=== PATIENT | female | born 1995 | race Caucasian/White ===

== ENCOUNTER 2025-01-14 11:33 | Inpatient (IN) | payer MEDICAID, SELFPAY ==
--- NOTE | 2025-01-14 11:57 | EKG_ITS ---
[facility] Test Date: 2025-01-14 Pat Name: MARGARET WATERS Department: Room: - Gender: Female Manager Salt: : 1995 Requested By: Jonathan Rg Order Number: [id number] Reading MD: Jonathan Rg Measurements Intervals [place] Rate: 115 P: 28 HI: 154 QRS: 6 QRSD: 87 T: 31 QT: 332 QTc: 459 Interpretive Statements SINUS TACHYCARDIA ABNORMAL RHYTHM ECG Compared to ECG 11/14/2018 10:01:05 T-wave abnormality no longer present /store/S0/[id number]
--- NOTE | 2025-01-14 11:57 | XR_ITS ---
Examination: AP chest single view TECHNIQUE: AP portable semiupright chest single view Date and time: January 14, 2025 1159 hours Comparison November 14, 2018 INDICATIONS: Chest pain today. FINDINGS: 16 mm nodule which may be cavitary in the left upper lobe. Normal heart size Right lung clear The osseous structures are intact IMPRESSION: 16 mm nodule which may be cavitary in the left upper lobe, differential would include tuberculosis Recommend CT chest without contrast follow-up
--- NOTE | 2025-01-14 11:58 | PD.EDCHEST ---
ED Chest Pain RME/HPI General Chief Complaint: Chest Pain Stated Complaint: CHEST PAIN Time Seen by Provider: 01/14/25 11:53 Arrival date/time: 01/14/25 11:33 RME / HPI RME / HPI narrative: 29-year-old female patient came in for evaluation regarding chest pain. Onset of symptoms since last night as chest pain, described as sharp pain, severity moderate. Patient continued to have chest pain all night, and woke up this morning with numbness to bilateral upper extremity and lower extremity. Patient is ambulatory. Patient denies any weakness to the extremities. Denies any headache denies any cough denies any other complaints. Patient was given nitro and Nitropaste and aspirin on the way to the emergency room. Related Data Previous Rx's ?Medication ?Instructions ?Recorded acetaminophen 325 mg capsule 975 mg (3 x 325 mg) PO Q6H PRN 01/24/20 pain #30 caps Allergies Allergy/AdvReac Type Severity Reaction Status Date / Time ciprofloxacin Allergy Severe CAUSES Verified 01/23/19 20:05 SEVERE ANXIETY ATTACKS adhesive Allergy Intermediate ARM TURNED Verified 01/23/19 20:05 RED Iodinated Contrast Media AdvReac Severe BURNING,BRU Verified 01/23/19 20:05 ISING,DIZZY ,NAUSEATED Review of Systems Review of Systems Narrative Review of Systems: Review of system reviewed and within normal limits except mentioned in HPI ED Exam Narrative Physical exam: VITAL SIGNS: Reviewed. GENERAL APPEARANCE: Alert and interactive, follows commands, no acute distress, HEAD AND FACE: Non-traumatic. ENT: PERRL, pink conjunctivitis, eyelid no trauma, Mucous membrane moist. NECK: Supple, nontender, no nuchal rigidity. CHEST: No tenderness, no crepitus, no paradoxical movement, no retractions. LUNGS: Clear, well ventilated, symmetric, no rales, no wheezing, no ronchi, no stridor, good breath sounds bilaterally. HEART: Regular rate, regular rhythm, no murmur, no gallops. ABDOMEN: Soft, positive bowel sounds, nondistended, no guarding, nontender, no rebound, no masses, RECTAL: Deferred. GENITAL: Deferred. NEUROLOGICAL: Gross motor function intact sensory function intact, Appropriate for age. No arm or lower leg drifting noted. MUSCULOSKELETAL: low back nontender, full range of motion. EXTREMITIES: Nontender, full range of motion. SKIN: Color pink, dry, no rash, no lacerations, no abrasions, no contusions. LYMPHATICS: Deferred. Course Quality Measures none Orders Category Date Time Status COVID-19 Screening Questionnaire NOW Care 01/14/25 16:42 Active COVID-19 Screening Questionnaire NOW Care 01/14/25 16:54 Completed Decision to Admit X1 Care 01/14/25 16:42 Completed Decision to Admit X1 Care 01/14/25 16:54 Completed EKG (ED ONLY) *Do not use* NOW Care 01/14/25 11:[address] chest wo con Stat Exams 01/14/25 14:28 Completed EKG (ED Only) Stat Exams 01/14/25 11:57 Draft XR chest 1V Stat Exams 01/14/25 11:57 Completed CBC Stat Lab 01/14/25 12:13 Completed Cocci Serology IgM with reflex to IgG [Cocci Serology, Lab 01/14/25 16:02 Ordered Unk History] Stat Comprehensive Metabolic Panel Stat Lab 01/14/25 12:13 Completed Drug Screen,Urine Stat Lab 01/14/25 12:13 Completed Partial Thromboplastin Time Stat Lab 01/14/25 12:13 Completed Troponin I Stat Lab 01/14/25 12:13 Completed Urinalysis, C/S if Indicated Stat Lab 01/14/25 12:13 Completed Ibuprofen Tab [Motrin Tab] Med 01/14/25 14:06 Discontinued 800 mg PO X1 ONE Vital Signs Vital signs: Vital Signs Temperature 98.3 F 01/14/25 12:26 Pulse Rate 110 H 01/14/25 12:26 Respiratory Rate 19 01/14/25 12:26 Blood Pressure 139/74 H 01/14/25 12:26 Pulse Oximetry (%) 95 01/14/25 12:26 Oxygen Delivery Method Room Air 01/14/25 12:26 Chest Pain MDM Narrative MDM Narrative:: 29-year-old female patient came in for evaluation regarding chest pain. Onset of symptoms since last night as chest pain, described as sharp pain, severity moderate. Patient continued to have chest pain all night, and woke up this morning with numbness to bilateral upper extremity and lower extremity. Patient is ambulatory. Patient denies any weakness to the extremities. Denies any headache denies any cough denies any other complaints. Patient was given nitro and Nitropaste and aspirin on the way to the emergency room. 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 Patient also told me that she unintentionally lost weight more than 20 pounds in the few weeks without even trying EKG showed sinus tachycardia, ventricular to 115 beats per minute, no ST segment elevation or depression noted. Patient's workup today all came back unremarkable no leukocytosis noted however CT scan of the chest showed 17 mm thick-walled cavitary lesion left upper lobe with adjacent subtle miliary nodular infiltrate in the left upper lobe, highest on the differential list is active tuberculosis, coccidioidomycosis Patient's workup today all came back normal. We suspect possible tuberculosis patient is to be admitted for further management and isolation. Patient data External records reviewed:: None Clinical information provided by:: patient Social determinants that could affect healthcare access:: none Patient has the following chronic illnesses:: None How is presenting disease/condition affected by chronic disease/condition?: no chronic disease Evaluation data The following diagnostics were reviewed and interpreted by me:: lab results, radiology exam(s) and EKG tracing(s) Lab and/or radiology exams considered but not ordered:: None Interpretation Summary: See results MDM Medications / Prescriptions Medications or Prescriptions considered but not ordered:: None Medication administrations:: Medication Administration History Acetaminophen (Acetaminophen 325 Mg Tablet) 650 mg PO Q6H PRN PRN Reason: Fever >101.5 Stop: 02/13/25 17:17 Acetaminophen (Acetaminophen 325 Mg Tablet) 650 mg PO Q6H PRN PRN Reason: PAIN SCALE 1-3 (mild Stop: 02/13/25 17:17 Ondansetron HCl (Ondansetron Odt 4 Mg Tabrap) 4 mg PO Q6HR PRN; Protocol PRN Reason: NAUSEA OR VOMITING Stop: 02/13/25 17:59 Discontinued Medications Enoxaparin Sodium (Enoxaparin Sod Inj 40 Mg/0.4 Ml Syringe) 40 mg SC DAILY [facility] Stop: 01/28/25 17:59 Last Admin: 01/14/25 18:28 Dose: Not Given Documented By: ELIJAH Non-Admin Reason: Cancelled by Provider Ibuprofen (Ibuprofen Tab 400 Mg Tablet) 800 mg PO X1 ONE; Protocol Stop: 01/14/25 14:07 Last Admin: 01/14/25 14:14 Dose: 800 mg Documented By: SM Sodium Chloride (Sodium Chloride Rt 10% 15 Ml Nebu) 5 ml INH X1 ONE Stop: 01/14/25 17:21 Sodium Chloride (Sodium Chloride Rt 10% 15 Ml Nebu) 5 ml INH X1 ONE Stop: 01/14/25 17:21 Tylenol and Zofran Consultations Consultation(s) initiated? (list below): No Diagnosis Chest Pain Differential Diagnosis: pneumothorax and chest pain Most likely diagnosis given after review of the tests above:: Cavitary lesion rule out tuberculosis in the lung Admission Indicated Admission indicated?: not indicated Admission Request Was there a request for admission?: Yes Admission Attestation Admission request attestation: Discussed case with Hospitalist service regarding admission. Discussed patients ED course, exam findings, labs, and radiology results. The Hospitalist [agrees] to accept the patient for admission. Disposition Plan Disposition Plan: Admit Discharge Plan Plan Patient Disposition: Admit Acute Care w/in Hospital Problem List Clinical Impression: Pulmonary cavitary lesion
[2025-01-14 12:05] VITALS: PULSE 120; RESP 16; O2SAT 96
[2025-01-14 12:20] VITALS: BMI 33.4
--- NOTE | 2025-01-14 12:21 | PC.NURSE ---
PATIENT ARRIVED ED VIA EMS WITH COMPLAINT OF CHEST PAIN. PATIENT STATES SHE HAD LEFT SIDE CHEST PAIN RADIATING DOWN LEFT ARM LAST NIGHT AND WENT TO BED WITH AN ICE PACK. PATIENT STATES SHE HAD ADDITIONAL PAIN WITH DIZZINESS THIS MORNING WITH CHEST PAIN THAT WRAPPED AROUND RIB AREA. PATIENT STATES THAT SHE ATE DUE TO FEELING LIKE HER BS WAS DROPPING, NO HISTORY OF DM. UPON ARRIVAL TO ED PATIENT DENIES COMPLAINT DUE TO EMS GIVING ASA 165MG, NITRO TABLETS AND NITRO PASTE WITH POSITIVE RELIEF. PATIENT STATES SHE HAS HISTORY OF ANXIETY BUT STATES THIS DID NOT FEEL LIKE HER NORMAL ANXIETY COMPLAINTS. EKG COMPLETED AT BEDSIDE. WILL CONTINUE TO MONITOR. PROVIDER REQUESTED TO REMOVE NITRO PASTE AT THIS TIME.
[2025-01-14 12:24] LABS: Collection Type, Urine Clean Catch; RBC,Urine 0 /hpf (0-3); WBC,Urine 0 /hpf (0-5)
[2025-01-14 12:25] LABS: Basophils # (Auto) 0.1 Thou/mm3 (0.0-0.2); Basophils % (Auto) 1 % (0-2.5); Eosinophils # (Auto) 0.1 Thou/mm3 (0.0-0.5); Eosinophils % (Auto) 1 % (0-10); Hematocrit 42.4 % (36.0-46.0); Hemoglobin 14.7 g/dL (12.0-16.0); Immature Granulocytes Auto 0.05 Thou/mm3 (0.00-0.00); Lymphocytes # (Auto) 1.6 Thou/mm3 (1.0-4.8); Lymphocytes % (Auto) 17 % (10-50); Mean Corpuscular HGB Conc 34.7 g/dl (31.0-37.0); Mean Corpuscular Hemoglobin 30.9 pg (25.0-35.0); Mean Corpuscular Volume 89 fL (80-100); Monocytes # (Auto) 0.4 Thou/mm3 (0.0-0.8); Monocytes % (Auto) 5 % (0-12); Neutrophils # (Auto) 7.2 Thou/mm3 (1.8-7.7); Neutrophils % (Auto) 77 % (37-80); Nucleated Red Blood Cell # 0.00 Thou/mm3 (0.00-0.00); Nucleated Red Blood Cell % 0 /100 WBC (0); Platelet Count 363 Thou/mm3 (140-440); RDW Standard Deviation 38.1 fL (36.4-46.3); Red Blood Count 4.75 Miln/mm3 (4.00-5.20); White Blood Count 9.3 Thou/mm3 (3.6-11.0)
[2025-01-14 12:26] VITALS: BP 139/74; PULSE 110; RESP 19; TEMP 36.8; O2SAT 95
[2025-01-14 12:53] LABS: Amphetamine/Methamp Scrn,U Negative (Negative); Barbiturate Screen,Urine Negative (Negative); Benzodiazepines Screen,Urine Negative (Negative); Benzoylecgonine Screen, Ur Negative (Negative); Bilirubin,Urine Negative (Negative); Blood,Urine Negative (Negative); Clarity,Urine Clear (Clear/Hazy); Color,Urine Yellow (Lt Yel-Yel); Culture Indicated,Urine Not Indicated; Fentanyl Screen,Urine Negative (Negative); Glucose, Urine Negative (Negative); Ketones,Urine Negative (Negative); Leukocyte Esterase,Urine Negative (Negative); Nitrite,Urine Negative (Negative); Opiate Screen,Urine Negative (Negative); PH,Urine 5.5 (5.0-7.0); Protein,Urine Negative (Neg - Trace); Specific Gravity,Urine 1.028 (1.001-1.035); Squamous Epithelial Cell,Urine 11 /hpf (0-5); THC Screen,Urine Negative (Negative); Urobilinogen,Urine Negative mg/dL (0.0-1.0)
[2025-01-14 12:54] LABS: Partial Thromboplastin Time 29.6 Seconds (22.0-36.0)
[2025-01-14 13:01] LABS: Alanine Aminotransferase 19 U/L (10-49); Albumin, Serum 4.3 gm/dL (3.5-5.0); Albumin/Globulin Ratio 1.6 (1.2-2.2); Alkaline Phosphatase 72 U/L (46-116); Anion Gap 10 (7-16); Aspartate Amino Transferase 21 U/L (0-34); BUN/Creatinine Ratio 11 Ratio (12-20); Bilirubin,Total 0.7 mg/dL (0.3-1.2); Blood Urea Nitrogen 9 mg/dL (9-23); Calcium 9.4 mg/dL (8.3-10.6); Calcium (Corrected) 9.4 mg/dL (8.5-10.1); Carbon Dioxide 26.0 mMol/L (20.0-31.0); Chloride 105 mMol/L (98-107); Creatinine (Component) 0.8 mg/dL (0.6-1.3); Estimated Creatinine Clearance 127.0 mL/min (>60); Globulin 2.7 gm/dL (2.3-3.5); Glucose 113 mg/dL (74-106); Osmolality,Calculated 280 (275-295); Potassium 3.8 mMol/L (3.4-5.1); Sodium 141 mMol/L (136-145); Total Protein 7.0 gm/dL (5.7-8.2); Troponin I < 0.002 ng/mL (0.0-0.045); eGFR > 60 See Note
[2025-01-14] MEDS: IBUPROFEN TAB 400 MG TABLET 800 MG PO ×2 (14:14→23:10)
--- NOTE | 2025-01-14 14:28 | XR_ITS ---
Examination: CT chest, without intravenous contrast. Sagittal and coronal 2-D reconstructions. Exam date and time: January 14, 2025, 1450 hours INDICATIONS: Chest pain shortness of breath beginning one week ago, 16 mm nodule which may be cavitary left upper lobe on chest x-ray today CTDI:vol (mGy) 20.8 DLP: (mGycm) 757 Technique: Multiple 3.0 mm axial sections of the chest to been obtained. Bone and lung density settings are obtained. Sagittal and coronal 2-D reconstructions have been obtained. Low dose protocols were performed. One or more of the following dose reduction techniques were used; automated exposure control, adjustment of the mA and/or KV according to patient size, use of iterative reconstruction technique. Findings: Aortic aneurysmal dilatation Pulmonary artery segments are not enlarged. No paratracheal tracheobronchial or bronchopulmonary adenopathy 17 mm thick-walled cavitary lesion left upper lobe with subtle miliary nodular infiltrate in the left upper lobe No visualized liver lesion Splenomegaly 15 cm No pancreatic or adrenal mass IMPRESSION: 17 mm thick-walled cavitary lesion left upper lobe with adjacent subtle miliary nodular infiltrate in the left upper lobe, highest on the differential list is active tuberculosis, coccidioidomycosis
--- NOTE | 2025-01-14 17:23 | ESHP_ITS ---
<Statement entered by Erik Baumann MD - 01/14/25 18:16> Senior Resident Attestation: I supervised/discussed management plan with internal audit manager physician Dr. Hansen, and was involved in the care of this patient. I personally saw and examined the patient and discussed the assessment and plan with the entire medicine team, including my attending. I agree with the assessment and plan as documented. Patient is 29 years old female with no significant past medical history presented to the ED complaining of chest pain worsening over the last several days. CT scan showed 17 mm thick cavitary lesion in the left upper lobe suspicious for active tuberculosis versus coccidioidomycosis. Patient was admitted for TB rule out. Patient's care was discussed with attending physician, Dr. Madison. Erik Baumann MD PGY-3. Documentation for date of: 01/14/25 HPI History of Present Illness History of present illness: Ms. Velez is a 29 y/o woman with PMH of PCOS who presented to the ED 01/14 with progressive chest pain. CT chest showed 17 mm thick walled cavitary lesion in the left upper lobe with subtle miliary nodular infiltrate in the left upper lobe. Admit for active TB vs cocci r/o. Patient initially came in for sharp, moderately severe chest pain that started last night. She woke up this morning with numbness to the b/l upper and lower extremities, per ED note. Given nitro, Nitropaste, aspirin on the way to the ED. She began coughing while in the ED, but denies hemoptysis. She also has a a headache. Patient has noticed that she has been feeling more fatigued for the past 2-3 months. Has had diarrhea that is yellow in color and floats, started several months ago. She has had weight loss of 20 lbs over the past year. Denies overt night sweats but does note that she no longer uses as many blankets when sleeping. 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 Does not know if patients had TB. She denies recent travel outside of the [place]. Denies taking immunosuppressants, chemo, or being immunocompromised. ED course: Afebrile, initial HR 98, RR 18, BP 138/90, spO2 98% RA. CBC, CMP, UA unremarkable. Troponin negative. UDs negative. CXR c/f cavitary lesion MAISHA. EKG sinus tachycardia HR 115, QTc 459. CT chest w/o showed 17 mm thick walled cavitary lesion in the left upper lobe with subtle miliary nodular infiltrate in the left upper lobe. Given ibuprofen in the ED. PMHx: PCOS Allergies: Ciprofloxacin (hives), amox-clav (hives) Home meds: none, no supplements or minerals SgHx: Left wrist fracture repair SHx: Denies smoking/tobacco use, EtOH, or recreational drug use. Lives at home with her and 2 kids. 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 Exam Vital Signs Temp Pulse Resp BP Pulse Ox O2 Del Method 98.3 F 110 H 19 139/74 H 95 Room Air 01/14/25 12:26 01/14/25 12:26 01/14/25 12:26 01/14/25 12:26 01/14/25 12:26 01/14/25 12:26 Narrative Exam General: No acute distress, well nourished, BMI 33 Eye: PERRL, EOMI, normal conjunctiva, no scleral icterus HENT: Normocephalic, atraumatic, normal hearing, moist oral mucosa Neck: Supple, non-tender, no JVD, no lymphadenopathy Lungs: Clear to auscultation bilaterally, non-labored respirations, symmetric chest rise, no use of accessory muscles Heart: Normal S1 and S2, no S3 or S4 appreciated. Normal rate and regular rhythm, no murmurs, rubs gallops, or edema. Peripheral pulses intact bilaterally, capillary refill brisk distally, no LE edema Abdomen: Soft, non-distended, normal bowel sounds. + RUQ TTP Musculoskeletal: Normal range of motion and strength, no tenderness or swelling Skin: Skin is warm, dry, no rashes or lesions. Neurologic: Alert, awake and oriented x3. CN II-XII grossly intact. No focal neuro deficits. Psychiatric: Cooperative, appropriate mood and affect Results: Labs 01/14/25 12:13 01/14/25 12:13 Labs: Short CBC 01/14/25 Range/Units 12:13 WBC 9.3 (3.6-11.0) Thou/mm3 Hgb 14.7 (12.0-16.0) g/dL Hct 42.4 (36.0-46.0) % Plt Count 363 (140-440) Thou/mm3 BMP 01/14/25 12:13 Sodium 141 Potassium 3.8 Chloride 105 Carbon Dioxide 26.0 BUN 9 Creatinine 0.8 Glucose 113 H Calcium 9.4 Cardiac Enzymes 01/14/25 Range/Units 12:13 Troponin I < 0.002 (0.0-0.045) ng/mL Liver Function 01/14/25 Range/Units 12:13 Total Bilirubin 0.7 (0.3-1.2) mg/dL AST 21 (0-34) U/L ALT 19 (10-49) U/L Alkaline Phosphatase 72 (46-116) U/L Albumin 4.3 (3.5-5.0) gm/dL Urine 01/14/25 Range/Units 12:13 Urine Color Yellow (Lt Yel-Yel) Urine Clarity Clear (Clear/Hazy) Urine pH 5.5 (5.0-7.0) Ur Specific [place] 1.028 (1.001-1.035) Urine Protein Negative (Neg - Trace) Urine Glucose (UA) Negative (Negative) Quality Measures Quality Measures VTE prophylaxis Medications Home Medications and Allergies Allergies Allergy/AdvReac Type Severity Reaction Status Date / Time ciprofloxacin Allergy Severe CAUSES Verified 01/23/19 20:05 SEVERE ANXIETY ATTACKS adhesive Allergy Intermediate ARM TURNED Verified 01/23/19 20:05 RED Iodinated Contrast Media AdvReac Severe BURNING,BRU Verified 01/23/19 20:05 ISING,DIZZY ,NAUSEATED Visit Medications Acetaminophen (Acetaminophen 325 Mg Tablet) 650 mg PO Q6H PRN PRN Reason: Fever >101.5 Stop: 02/13/25 17:17 Acetaminophen (Acetaminophen 325 Mg Tablet) 650 mg PO Q6H PRN PRN Reason: PAIN SCALE 1-3 (mild Stop: 02/13/25 17:17 Discontinued Medications Ibuprofen (Ibuprofen Tab 400 Mg Tablet) 800 mg PO X1 ONE; Protocol Stop: 01/14/25 14:07 Last Admin: 01/14/25 14:14 Dose: 800 mg Sodium Chloride (Sodium Chloride Rt 10% 15 Ml Nebu) 5 ml INH X1 ONE Stop: 01/14/25 17:21 Sodium Chloride (Sodium Chloride Rt 10% 15 Ml Nebu) 5 ml INH X1 ONE Stop: 01/14/25 17:21 Assessment & Plan Plan # Cavity lesion on left upper lobe # TB vs cocci rule out 20 lb unintentional weight loss over 1 year, 2-3 months fatigue, sharp chest pain x1 day 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 Admit for active TB vs cocci r/o. Plan: - Airborne isolation until TB ruled out - Pending AFB sputum cultures with NAAT ?3 q8h - Pending Quantiferon - Pending cocci serology - ID consulted, appreciate recs - Tylenol for pain/fever PRN - CTM for fever, CBC #RUQ pain Several months yellow-colored diarrhea that floats LFT, total bili WNL Plan: - Pending Abdominal US #Hx PCOS BMI 33 Plan: -Pending A1C, lipid panel Dispo: pending TB r/o Diet: regular Bowel Reg: none VTE ppx: lovenox 40 mg daily GI ppx: none Code status: Full Plan discussed with Dr. Baumann and Dr. Los Hansen MD PGY1 Attending Provider Attestation/Addendum I have examined the patient, reviewed labs and imaging findings, discussed the case with the resident(s), and reviewed entered orders. I agree with the plan of care as outlined in this note, with these additional summaries/recommendations: After examination of the patient and review of the clinical data, I feel that this patient needs admission to the hospital for further treatment and evaluation. Patient is a 29-year-old female with no significant past medical history who presents to [facility] emergency department on 01/14/2025 with chief complaint of chest pain. Patient seen at bedside. She endorses chest pain prior to arrival. Troponin with in normal limits. No acute ST changes on electrocardiogram but does reveal sinus tachycardia. Patient completed chest x-ray which was suspicious for cavitary lesion in left upper lobe. CT chest obtained which revealed 17 mm thick walled cavitary lesion left upper lobe with adjacent subtle miliary nodular infiltrate. Differential is active tuberculosis versus coccidioidomycosis. Patient will be placed on isolation precautions. Order AFBs x 3 and quantiferon gold. Order cocci serology. Tylenol and ibuprofen as needed for pain management. Patient updated on the plan and in agreement. Please see residents note for additional details of management. Dr. Los MD
--- NOTE | 2025-01-14 17:48 | XR_ITS ---
Examination: Abdomen sonogram, Limited Date and time of exam: January 14, 2025 1824 hours INDICATIONS: Right-sided tenderness and pain today Technique: Real-time muana scale transabdominal sonographic images of the upper abdomen obtained. Findings: 5 mm gallbladder polyp Negative for gallstones Normal gallbladder wall. Normal common bile duct 0.3 cm Pancreatic head 3.3 cm Liver 16.2 cm no focal liver lesions Normal hepatopedal portal venous flow Patent IVC IMPRESSION: 5 mm gallbladder polyp Negative for cholelithiasis, negative for cholecystitis
[2025-01-14 17:59] LABS: Glucose Estimated Average 105 mg/dL (80-131); Hemoglobin A1C 5.3 % Hgb (4.8-6.0)
[2025-01-14 18:15] VITALS: BP 125/94; PULSE 81; RESP 18; TEMP 36.8; O2SAT 98
[2025-01-14 19:45] VITALS: BP 127/85; PULSE 89; RESP 14; TEMP 36.8; O2SAT 98
--- NOTE | 2025-01-14 20:04 | PC.NURSE ---
Report called to floor nurse, Lety KUO
[2025-01-14 20:33] VITALS: BMI 41.4
[2025-01-14 20:41] VITALS: BP 127/82; PULSE 69; RESP 14; TEMP 37.6; O2SAT 90
[2025-01-15] VITALS (8 sets, daily range): BP systolic 97–140; BP diastolic 56–95; PULSE 62–91; RESP 15–22; TEMP 36–36.5; O2SAT 96–100
[2025-01-15 06:26] LABS: Basophils # (Auto) 0.1 Thou/mm3 (0.0-0.2); Basophils % (Auto) 1 % (0-2.5); Eosinophils # (Auto) 0.2 Thou/mm3 (0.0-0.5); Eosinophils % (Auto) 2 % (0-10); Hematocrit 39.6 % (36.0-46.0); Hemoglobin 14.0 g/dL (12.0-16.0); Immature Granulocytes Auto 0.05 Thou/mm3 (0.00-0.00); Lymphocytes # (Auto) 2.2 Thou/mm3 (1.0-4.8); Lymphocytes % (Auto) 25 % (10-50); Mean Corpuscular HGB Conc 35.4 g/dl (31.0-37.0); Mean Corpuscular Hemoglobin 31.4 pg (25.0-35.0); Mean Corpuscular Volume 89 fL (80-100); Monocytes # (Auto) 0.6 Thou/mm3 (0.0-0.8); Monocytes % (Auto) 7 % (0-12); Neutrophils # (Auto) 6.0 Thou/mm3 (1.8-7.7); Neutrophils % (Auto) 66 % (37-80); Nucleated Red Blood Cell # 0.00 Thou/mm3 (0.00-0.00); Nucleated Red Blood Cell % 0 /100 WBC (0); Platelet Count 298 Thou/mm3 (140-440); RDW Standard Deviation 37.8 fL (36.4-46.3); Red Blood Count 4.46 Miln/mm3 (4.00-5.20); White Blood Count 9.1 Thou/mm3 (3.6-11.0)
[2025-01-15] MEDS: SODIUM CHLORIDE RT 10% 15 ML NEBU 5 ML INH ×2 (06:58→23:46)
[2025-01-15 06:59] LABS: Alanine Aminotransferase 14 U/L (10-49); Albumin, Serum 4.0 gm/dL (3.5-5.0); Albumin/Globulin Ratio 1.7 (1.2-2.2); Alkaline Phosphatase 67 U/L (46-116); Anion Gap 9 (7-16); Aspartate Amino Transferase 14 U/L (0-34); BUN/Creatinine Ratio 13 Ratio (12-20); Bilirubin,Total 0.6 mg/dL (0.3-1.2); Blood Urea Nitrogen 9 mg/dL (9-23); Calcium 9.4 mg/dL (8.3-10.6); Calcium (Corrected) 9.4 mg/dL (8.5-10.1); Carbon Dioxide 25.4 mMol/L (20.0-31.0); Cardiac Risk Estimate 6.0 RATIO (3.7-5.6); Chloride 105 mMol/L (98-107); Cholesterol 185 mg/dL (132-200); Creatinine (Component) 0.7 mg/dL (0.6-1.3); Estimated Creatinine Clearance 162.9 mL/min (>60); Globulin 2.4 gm/dL (2.3-3.5); Glucose 103 mg/dL (74-106); HDL Cholesterol 31 mg/dL (40-60); LDL Cholesterol,Calculated 130 mg/dL (0-130); Magnesium 1.6 mg/dL (1.6-2.6); Osmolality,Calculated 276 (275-295); Phosphorous 3.7 mg/dL (2.4-5.1); Potassium 4.4 mMol/L (3.4-5.1); Sodium 139 mMol/L (136-145); Total Protein 6.4 gm/dL (5.7-8.2); Triglycerides 118 mg/dL (30-150); eGFR > 60 See Note
--- NOTE | 2025-01-15 09:54 | ESPR_ITS ---
<Statement entered by Boaz Patterson MD - 01/15/25 21:11> Patient was examined and case was reviewed with team including attending physician. Note reviewed, I agree with most of its contents and agree with the patient's care as documented by Dr. Hansen Patient seen today at the bedside found awake, alert, orientedx3. No overnight events reported. Vital signs stable at this time. Will continue with isolation and will await AFB results to rule out TB. Cocci serology pending at this time. Case discussed with my attending Dr. Carolyn Patterson MD PGY-2 Documentation for date of: 01/15/25 Subjective Subjective Interval history: NAEO. Patient reports no new symptoms. Denies chest pain, headache, abdominal pain, N/V/diarrhea. Exam Vital Signs Temp Pulse Resp BP Pulse Ox O2 Del Method 96.8 F 91 20 140/95 H 99 Room Air 01/15/25 07:35 01/15/25 07:35 01/15/25 07:35 01/15/25 07:35 01/15/25 07:35 01/15/25 07:35 Narrative Exam General: No acute distress, well nourished, Eye: PERRL, EOMI, normal conjunctiva, no scleral icterus HENT: Normocephalic, atraumatic, normal hearing, moist oral mucosa Neck: Supple, non-tender, no JVD, no lymphadenopathy Lungs: Clear to auscultation bilaterally, non-labored respirations, symmetric chest rise, no use of accessory muscles Heart: Normal S1 and S2, no S3 or S4 appreciated. Normal rate and regular rhythm, no murmurs, rubs gallops, or edema. Peripheral pulses intact bilaterally, capillary refill brisk distally, no LE edema Abdomen: Soft, non-distended, normal bowel sounds. No TTP Musculoskeletal: Normal range of motion and strength, no tenderness or swelling Skin: Skin is warm, dry, no rashes or lesions. Neurologic: Alert, awake and oriented x3. CN II-XII grossly intact. No focal neuro deficits. Psychiatric: Cooperative, appropriate mood and affect Objective Labs 01/16/25 06:06 01/16/25 06:06 Labs: Laboratory Results - last 24 hr 01/14/25 01/14/25 01/15/25 12:13 12:15 05:22 WBC 9.3 9.1 RBC 4.75 4.46 Hgb 14.7 14.0 Hct 42.4 39.6 MCV 89 89 MCH 30.9 31.4 MCHC 34.7 35.4 RDW Std Deviation 38.1 37.8 Plt Count 363 298 D Neut % (Auto) 77 66 Lymph % (Auto) 17 25 [place] % (Auto) 5 7 Eos % (Auto) 1 2 Baso % (Auto) 1 1 Neut # (Auto) 7.2 6.0 Lymph # (Auto) 1.6 2.2 [place] # (Auto) 0.4 0.6 Eos # (Auto) 0.1 0.2 Baso # (Auto) 0.1 0.1 Immature Gran # (Auto) 0.05 H 0.05 H Absolute Nucleated RBC 0.00 0.00 Immature Gran % 1 H 1 H Nucleated RBC % 0 0 APTT 29.6 Sodium 141 139 Potassium 3.8 4.4 D Chloride 105 105 Carbon Dioxide 26.0 25.4 Anion Gap 10 9 BUN 9 9 Creatinine 0.8 0.7 Estim Creat Clear Calc 127.0 162.9 eGFR > 60 > 60 BUN/Creatinine Ratio 11 L 13 Glucose [address] Glu mg/dL 105 Hemoglobin A1c 5.3 Calculated Osmolality 280 276 Calcium 9.4 9.4 Corrected Calcium 9.4 9.4 Phosphorus 3.7 Magnesium 1.6 Total Bilirubin 0.7 0.6 AST 21 14 ALT 19 14 Alkaline Phosphatase 72 67 Troponin I < 0.002 Total Protein 7.0 6.4 Albumin 4.3 4.0 Globulin 2.7 2.4 Albumin/Globulin Ratio 1.6 1.7 Triglycerides 118 Cholesterol 185 LDL Cholesterol, Calc 130 HDL Cholesterol 31 L Cholesterol/HDL Ratio 6.0 H Ur Collection Type Clean Catch Urine Color Yellow Urine Clarity Clear Urine pH 5.5 Ur Specific [place] 1.028 Urine Protein Negative Urine Glucose (UA) Negative Urine Ketones Negative Urine Blood Negative Urine Nitrite Negative Urine Bilirubin Negative Urine Urobilinogen (Auto) Negative Ur Leukocyte Esterase Negative Urine RBC 0 Urine WBC 0 Ur Squamous Epith Cells 11 H Urine Bacteria None Ur Culture Indicated? Not Indicated Urine Opiates Screen Negative Urine Fentanyl Screen Negative Ur Barbiturates Screen Negative U Amphetamin/Meth Scrn Negative U Benzodiazepines Scrn Negative U Cocaine Metab Screen Negative U Marijuana (THC) Screen Negative Quality Measures Quality Measures none Assessment & Plan Assessment Current Active Medications: Generic Name Dose Route Start Last Admin Trade Name [place] PRN Reason Stop Dose Admin Acetaminophen 650 mg 01/14/25 17:18 Acetaminophen 325 Mg Tablet PO 02/13/25 17:17 Q6H PRN Fever >101.5 Acetaminophen 650 mg 01/14/25 17:18 Acetaminophen 325 Mg Tablet PO 02/13/25 17:17 Q6H PRN PAIN SCALE 1-3 (mild Ondansetron HCl 4 mg 01/14/25 18:00 Ondansetron Odt 4 Mg Tabrap PO 02/13/25 17:59 Q6HR PRN NAUSEA OR VOMITING Protocol Plan Ms. Velez is a 29 y/o female with PMH of PCOS, not on any home meds, who presented to the ED with chest pain. CT chest showed MAISHA cavitary lesion. Admitted for cocci vs TB r/o. 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 Admit for active TB vs cocci r/o. Plan: - Airborne isolation until TB ruled out - Pending AFB sputum cultures with NAAT ?3 q8h - Pending Quantiferon - Pending cocci serology - ID consulted, appreciate recs - Tylenol for pain/fever PRN - CTM for fever, CBC #RUQ pain - resolved Several months yellow-colored diarrhea that floats No diarrhea episodes in the hospital LFT, total bili WNL Abdominal US showed 5 mm gallbladder polyp, no cholelithiasis, no cholecystitis Plan: - CTM #Hx PCOS BMI 33 A1C 5.3, HDL 31 (low) otherwise lipids WNL Plan: - CTM Dispo: pending TB vs cocci r/o Diet: regular Bowel Reg: none VTE ppx: lovenox 40 mg daily GI ppx: none Code status: Full Plan discussed with Dr. Suarez and Dr. Carolyn Hansen MD PGY1 Attending Provider Attestation/Addendum I, Itzel Leon DO, attest that I was physically present for the bailey portions of the service and evaluated the patient with the resident and I reviewed and discussed the case with the resident and agree with the resident's findings and plans of care as documented above Patient seen and eval this a.m. is at bedside. Patient states that she had initially called EMS due to feeling of hypoglycemia and was not able to get her medication in time. At the time, she had felt diaphoretic, tremulous, chest discomfort, near syncopal. She states her symptoms were typical of a hypoglycemic event. However, upon arrival of EMS, an EKG had been done and there was concern that patient had an arrhythmia. She was also given nitroglycerin. However, repeat EKG was negative. In the ED, patient was found to have a cavitary lesion on chest x-ray and on CT. However, patient currently feels well and has no active complaints. She does endorse that she has a history of costochondritis which may have contributed to her chest pain. Chest pain is reproducible on palpation of her left chest. Patient states that she has never had history of TB. She does work at a custodial and her previous boss had latent TB. However, she denies any weight loss, mopped assist, night sweats or loss of appetite. She denies any history of incarceration or active TB exposure. She denies any recent travel. Patient lives at home with her 2 children and . They state that they had lived in stress more growing up and was always exposed to the dust. However, she has never been diagnosed with valley fever in the past. She states that last , she had a very bad bout of pneumonia, but all her workup was negative outpatient. Patient states that she has no cough or productive sputum despite sputum induction with [employer]. Will await QuantiFERON at this time. Physical exam was otherwise benign.
[2025-01-15 14:47] LABS: Cocci Serology, IgM Negative (Negative)
[2025-01-15] MEDS: SODIUM CHLORIDE RT 10% 15 ML NEBU INH (15:10)
[2025-01-16] VITALS: BP 133/94; PULSE 91; RESP 18; TEMP 36.2; O2SAT 99
[2025-01-16 04:00] VITALS: BP 113/67; PULSE 69; RESP 17; TEMP 36.6; O2SAT 96
[2025-01-16 06:36] LABS: Quantiferon-TB* See Sep Rpt
[2025-01-16 06:48] LABS: Basophils # (Auto) 0.1 Thou/mm3 (0.0-0.2); Basophils % (Auto) 1 % (0-2.5); Eosinophils # (Auto) 0.1 Thou/mm3 (0.0-0.5); Eosinophils % (Auto) 2 % (0-10); Hematocrit 39.3 % (36.0-46.0); Hemoglobin 13.8 g/dL (12.0-16.0); Immature Granulocytes Auto 0.05 Thou/mm3 (0.00-0.00); Lymphocytes # (Auto) 1.9 Thou/mm3 (1.0-4.8); Lymphocytes % (Auto) 23 % (10-50); Mean Corpuscular HGB Conc 35.1 g/dl (31.0-37.0); Mean Corpuscular Hemoglobin 30.9 pg (25.0-35.0); Mean Corpuscular Volume 88 fL (80-100); Monocytes # (Auto) 0.5 Thou/mm3 (0.0-0.8); Monocytes % (Auto) 6 % (0-12); Neutrophils # (Auto) 5.5 Thou/mm3 (1.8-7.7); Neutrophils % (Auto) 67 % (37-80); Nucleated Red Blood Cell # 0.00 Thou/mm3 (0.00-0.00); Nucleated Red Blood Cell % 0 /100 WBC (0); Platelet Count 274 Thou/mm3 (140-440); RDW Standard Deviation 37.9 fL (36.4-46.3); Red Blood Count 4.46 Miln/mm3 (4.00-5.20); White Blood Count 8.2 Thou/mm3 (3.6-11.0)
[2025-01-16 06:58] LABS: Alanine Aminotransferase 14 U/L (10-49); Albumin, Serum 3.9 gm/dL (3.5-5.0); Albumin/Globulin Ratio 1.5 (1.2-2.2); Alkaline Phosphatase 65 U/L (46-116); Anion Gap 10 (7-16); Aspartate Amino Transferase 15 U/L (0-34); BUN/Creatinine Ratio 11 Ratio (12-20); Bilirubin,Total 0.4 mg/dL (0.3-1.2); Blood Urea Nitrogen 8 mg/dL (9-23); Calcium 9.3 mg/dL (8.3-10.6); Calcium (Corrected) 9.4 mg/dL (8.5-10.1); Carbon Dioxide 24.7 mMol/L (20.0-31.0); Chloride 106 mMol/L (98-107); Creatinine (Component) 0.7 mg/dL (0.6-1.3); Estimated Creatinine Clearance 162.9 mL/min (>60); Globulin 2.6 gm/dL (2.3-3.5); Glucose 106 mg/dL (74-106); Magnesium 1.4 mg/dL (1.6-2.6); Osmolality,Calculated 279 (275-295); Phosphorous 4.2 mg/dL (2.4-5.1); Potassium 4.1 mMol/L (3.4-5.1); Sodium 141 mMol/L (136-145); Total Protein 6.5 gm/dL (5.7-8.2); eGFR > 60 See Note
[2025-01-16 07:45] VITALS: BP 123/81; PULSE 70; RESP 18; TEMP 36.1; O2SAT 97
--- NOTE | 2025-01-16 08:39 | ESPR_ITS ---
<Statement entered by Boaz Patterson MD - 01/16/25 20:49> Patient was examined and case was reviewed with team including attending physician. Note reviewed, I agree with most of its contents and agree with the patient's care as documented by Dr. Hansen Patient seen today at the bedside found awake, alert, orientedx3. No overnight events reported. Vital signs stable at this time. Currently pending AFBs had to be reordered as patient unable to produce sputum. Cocci serology negative at this time. Boaz Patterson MD PGY-2 Documentation for date of: 01/16/25 Subjective Subjective Interval history: NAEO. Reordered AFB with NAAT because patient could not produce sputum. VSS. Exam Vital Signs Temp Pulse Resp BP Pulse Ox O2 Del Method 97.0 F 70 18 123/81 97 Room Air 01/16/25 07:45 01/16/25 07:45 01/16/25 07:45 01/16/25 07:45 01/16/25 07:45 01/16/25 07:45 Narrative Exam General: No acute distress, well nourished, Eye: PERRL, EOMI, normal conjunctiva, no scleral icterus HENT: Normocephalic, atraumatic, normal hearing, moist oral mucosa Neck: Supple, non-tender, no JVD, no lymphadenopathy Lungs: Clear to auscultation bilaterally, non-labored respirations, symmetric chest rise, no use of accessory muscles Heart: Normal S1 and S2, no S3 or S4 appreciated. Normal rate and regular rhythm, no murmurs, rubs gallops, or edema. Peripheral pulses intact bilaterally, capillary refill brisk distally, no LE edema Abdomen: Soft, non-distended, normal bowel sounds. No TTP Musculoskeletal: Normal range of motion and strength, no tenderness or swelling Skin: Skin is warm, dry, no rashes or lesions. Neurologic: Alert, awake and oriented x3. CN II-XII grossly intact. No focal neuro deficits. Psychiatric: Cooperative, appropriate mood and affect Objective Labs 01/17/25 05:31 01/17/25 05:31 Labs: Laboratory Results - last 24 hr 01/15/25 01/16/25 09:12 06:06 WBC 8.2 RBC 4.46 Hgb 13.8 Hct 39.3 MCV 88 MCH 30.9 MCHC 35.1 RDW Std Deviation 37.9 Plt Count 274 Neut % (Auto) 67 Lymph % (Auto) 23 [place] % (Auto) 6 Eos % (Auto) 2 Baso % (Auto) 1 Neut # (Auto) 5.5 Lymph # (Auto) 1.9 [place] # (Auto) 0.5 Eos # (Auto) 0.1 Baso # (Auto) 0.1 Immature Gran # (Auto) 0.05 H Absolute Nucleated RBC 0.00 Immature Gran % 1 H Nucleated RBC % 0 Sodium 141 Potassium 4.1 Chloride 106 Carbon Dioxide 24.7 Anion Gap 10 BUN 8 L Creatinine 0.7 Estim Creat Clear Calc 162.9 eGFR > 60 BUN/Creatinine Ratio 11 L Glucose 106 Calculated Osmolality 279 Calcium 9.3 Corrected Calcium 9.4 Phosphorus 4.2 Magnesium 1.4 L Total Bilirubin 0.4 AST 15 ALT 14 Alkaline Phosphatase 65 Total Protein 6.5 Albumin 3.9 Globulin 2.6 Albumin/Globulin Ratio 1.5 Coccidioides IgM Ab Negative Quality Measures Quality Measures none Assessment & Plan Assessment Current Active Medications: Generic Name Dose Route Start Last Admin Trade Name Freq PRN Reason Stop Dose Admin Acetaminophen 650 mg 01/14/25 17:18 Acetaminophen 325 Mg Tablet PO 02/13/25 17:17 Q6H PRN Fever >101.5 Acetaminophen 650 mg 01/14/25 17:18 Acetaminophen 325 Mg Tablet PO 02/13/25 17:17 Q6H PRN PAIN SCALE 1-3 (mild Ondansetron HCl 4 mg 01/14/25 18:00 Ondansetron Odt 4 Mg Tabrap PO 02/13/25 17:59 Q6HR PRN NAUSEA OR VOMITING Protocol Sodium Chloride 15 ml 01/15/25 14:56 01/15/25 15:10 Sodium Chloride Rt 10% 15 Ml Nebu INH 02/14/25 14:55 15 ml PRN PRN Administration SOLN Plan Ms. Velez is a 29 y/o female with PMH of PCOS, not on any home meds, who presented to the ED with chest pain. CT chest showed MAISHA cavitary lesion. Admitted for cocci vs TB r/o. 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 Admit for active TB vs cocci r/o. Plan: - Airborne isolation until TB ruled out - Pending AFB sputum cultures with NAAT ?3 q8h - Pending Quantiferon, PPD skin test - Pending cocci serology - ID consulted, appreciate recs - Tylenol for pain/fever PRN - CTM for fever, CBC #RUQ pain - resolved Several months yellow-colored diarrhea that floats No diarrhea episodes in the hospital LFT, total bili WNL Abdominal US showed 5 mm gallbladder polyp, no cholelithiasis, no cholecystitis Plan: - CTM #Hx PCOS BMI 33 A1C 5.3, HDL 31 (low) otherwise lipids WNL Plan: - CTM Dispo: pending TB vs cocci r/o Diet: regular Bowel Reg: none VTE ppx: lovenox 40 mg daily GI ppx: none Code status: Full Plan discussed with Dr. Suarez and Dr. Carolyn Hansen MD PGY1 Attending Provider Attestation/Addendum I, Itzel Leon DO, attest that I was physically present for the bailey portions of the service and evaluated the patient with the resident and I reviewed and discussed the case with the resident and agree with the resident's findings and plans of care as documented above Patient seen and eval this a.m. She is unable to expectorate any sputum and thus AFBs were not done. QuantiFERON is pending. Cocci IgM is negative otherwise. Pending rest of results. PPD was also done. Patient otherwise feeling well and on room air. She is asymptomatic at this time. No acute events overnight otherwise.
[2025-01-16] MEDS: MAGNESIUM OXIDE 400 MG TABLET PO (09:31)
[2025-01-16] MEDS: TUBERCULIN PPD INJ 5 UNIT/0.1 ML DOSE ID (11:17)
--- NOTE | 2025-01-16 11:36 | PC.RT ---
PER DR LOPEZ, CANCEL AFB SAMPLES. PT IS UNABLE TO PRODUCE SPUTUM EVEN WITH INDUCTION
--- NOTE | 2025-01-16 11:43 | PC.SS ---
Patient Inna Velez is a 29 Year old female admitted fir TB VS COCCI R/O. SS contacted patient via phone due to precaution measures. Patients Nik Tafoya answered and reports patient lives at home with her children and himself, he reports he is patient's surrogate decision maker [phone]. Patient's reports patient is able to complete all ADL's independently and able to ambulate without assistance. Choice of pharmacy is [facility]. PCP is Livan Patterson. Discharge plan was discussed and patient will return home when medically cleared. Next of kin, Nik Tafoya Discharge plan: Home
[2025-01-16 12:00] VITALS: BP 123/84; PULSE 84; RESP 19; TEMP 36.1; O2SAT 98
[2025-01-16 14:45] LABS: Cocci Serology, IgG Negative (Negative)
[2025-01-16 15:06] LABS: Cocci Serology, IgM Negative (Negative)
[2025-01-16 16:00] VITALS: BP 126/82; PULSE 78; RESP 19; TEMP 36.3; O2SAT 97
--- NOTE | 2025-01-16 16:03 | PC.SS ---
SS follow up note; Patient is pending TB R/O. Patient will discharge home when medically cleared.
[2025-01-16 20:00] VITALS: BP 100/68; PULSE 72; RESP 18; TEMP 36.1; O2SAT 98
[2025-01-16] MEDS: IBUPROFEN TAB 400 MG TABLET PO (23:45)
[2025-01-17] VITALS (8 sets, daily range): BP systolic 95–145; BP diastolic 64–97; PULSE 75–100; RESP 16–19; TEMP 36.2–36.7; O2SAT 97–100
[2025-01-17 06:33] LABS: Basophils # (Auto) 0.1 Thou/mm3 (0.0-0.2); Basophils % (Auto) 1 % (0-2.5); Eosinophils # (Auto) 0.1 Thou/mm3 (0.0-0.5); Eosinophils % (Auto) 2 % (0-10); Hematocrit 40.2 % (36.0-46.0); Hemoglobin 14.0 g/dL (12.0-16.0); Immature Granulocytes Auto 0.05 Thou/mm3 (0.00-0.00); Lymphocytes # (Auto) 2.1 Thou/mm3 (1.0-4.8); Lymphocytes % (Auto) 24 % (10-50); Mean Corpuscular HGB Conc 34.8 g/dl (31.0-37.0); Mean Corpuscular Hemoglobin 31.1 pg (25.0-35.0); Mean Corpuscular Volume 89 fL (80-100); Monocytes # (Auto) 0.5 Thou/mm3 (0.0-0.8); Monocytes % (Auto) 6 % (0-12); Neutrophils # (Auto) 5.7 Thou/mm3 (1.8-7.7); Neutrophils % (Auto) 67 % (37-80); Nucleated Red Blood Cell # 0.00 Thou/mm3 (0.00-0.00); Nucleated Red Blood Cell % 0 /100 WBC (0); Platelet Count 294 Thou/mm3 (140-440); RDW Standard Deviation 37.7 fL (36.4-46.3); Red Blood Count 4.50 Miln/mm3 (4.00-5.20); White Blood Count 8.6 Thou/mm3 (3.6-11.0)
[2025-01-17 06:49] LABS: Alanine Aminotransferase 14 U/L (10-49); Albumin, Serum 3.9 gm/dL (3.5-5.0); Albumin/Globulin Ratio 1.5 (1.2-2.2); Alkaline Phosphatase 65 U/L (46-116); Anion Gap 10 (7-16); Aspartate Amino Transferase 15 U/L (0-34); BUN/Creatinine Ratio 10 Ratio (12-20); Bilirubin,Total 0.7 mg/dL (0.3-1.2); Blood Urea Nitrogen 8 mg/dL (9-23); Calcium 9.4 mg/dL (8.3-10.6); Calcium (Corrected) 9.5 mg/dL (8.5-10.1); Carbon Dioxide 25.5 mMol/L (20.0-31.0); Chloride 104 mMol/L (98-107); Creatinine (Component) 0.8 mg/dL (0.6-1.3); Estimated Creatinine Clearance 142.5 mL/min (>60); Globulin 2.6 gm/dL (2.3-3.5); Glucose 96 mg/dL (74-106); Magnesium 1.9 mg/dL (1.6-2.6); Osmolality,Calculated 275 (275-295); Phosphorous 4.2 mg/dL (2.4-5.1); Potassium 3.9 mMol/L (3.4-5.1); Sodium 139 mMol/L (136-145); Total Protein 6.5 gm/dL (5.7-8.2); eGFR > 60 See Note
[2025-01-17 07:13] LABS: Hepatitis C Antibody Non Reactive (Non React)
--- NOTE | 2025-01-17 07:49 | ESPR_ITS ---
<Statement entered by Boaz Patterson MD - 01/17/25 14:57> Patient was examined and case was reviewed with team including attending physician. Note reviewed, I agree with most of its contents and agree with the patient's care as documented by Dr. Hansen Patient seen today at the bedside found awake, alert, orientedx3. No overnight events reported. Vitals and labs reviewed. Patient is still pending AFB sample to rule out TB. We spoke with infection control and recommended possibly ripe therapy for 3 weeks or intubation with bronchoalveolar lavage. When explaining options to the patient patient became frustrated and wished for us to leave the room. Patient's decision was respected. Patient then later was able to produce samples for AFB's. Case discussed with my attending Dr. Carolyn Patterson MD PGY-2 Disclaimer: Despite multiple revisions, due to the dictation software being used, the document bellow may not be free of grammatical errors including phonetic/typographic errors. However, this does not deter from our commitment to providing health care in the patient's best interest in mind. Documentation for date of: 01/17/25 Subjective Subjective Interval history: Had a headache and panic attack overnight, received ibuprofen. Cocci IgM and IgG negative, Hep C Ab negative Pending HIV, TB Quantiferon. Patient has not been able to produce enough sputum for AFB x3 Patient evaluated at bedside, denies headache, abdominal pain. Denies new symptoms. Spoke with infection control about options if patient is unable to produce sputum for AFB. Options include BAL or RIPE inpatient for 3 weeks. Discussed options with patient, pending patient's response. Patient does not want to be put under anesthesia or stay in the hospital for 3 weeks. Re-ordered AFB with sputum induction today for one more try. RT reported that she was able to get sputum x1 today, pending 2 more for AFB. Exam Vital Signs Temp Pulse Resp BP Pulse Ox O2 Del Method 97.7 F 75 18 125/80 100 Room Air 01/17/25 04:00 01/17/25 04:00 01/17/25 04:00 01/17/25 04:00 01/17/25 04:00 01/17/25 04:00 Narrative Exam General: No acute distress, well nourished Eye: PERRL, EOMI, normal conjunctiva, no scleral icterus HENT: Normocephalic, atraumatic, normal hearing, moist oral mucosa Neck: Supple, non-tender, no JVD, no lymphadenopathy Lungs: Clear to auscultation bilaterally, non-labored respirations, symmetric chest rise, no use of accessory muscles Heart: Normal S1 and S2, no S3 or S4 appreciated. Normal rate and regular rhythm, no murmurs, rubs gallops, or edema. Peripheral pulses intact bilaterally, capillary refill brisk distally, no LE edema Abdomen: Soft, non-distended, normal bowel sounds. No TTP Musculoskeletal: Normal range of motion and strength, no tenderness or swelling Skin: Skin is warm, dry, no rashes or lesions. Neurologic: Alert, awake and oriented x3. CN II-XII grossly intact. No focal neuro deficits. Psychiatric: Labile affect, anxious Objective Labs 01/17/25 05:31 01/17/25 05:31 Labs: Laboratory Results - last 24 hr 01/15/25 01/16/25 01/17/25 09:12 06:06 05:31 WBC 8.6 RBC 4.50 Hgb 14.0 Hct 40.2 MCV 89 MCH 31.1 MCHC 34.8 RDW Std Deviation 37.7 Plt Count 294 Neut % (Auto) 67 Lymph % (Auto) 24 [place] % (Auto) 6 Eos % (Auto) 2 Baso % (Auto) 1 Neut # (Auto) 5.7 Lymph # (Auto) 2.1 [place] # (Auto) 0.5 Eos # (Auto) 0.1 Baso # (Auto) 0.1 Immature Gran # (Auto) 0.05 H Absolute Nucleated RBC 0.00 Immature Gran % 1 H Nucleated RBC % 0 Sodium 139 Potassium 3.9 Chloride 104 Carbon Dioxide 25.5 Anion Gap 10 BUN 8 L Creatinine 0.8 Estim Creat Clear Calc 142.5 eGFR > 60 BUN/Creatinine Ratio 10 L Glucose 96 Calculated Osmolality 275 Calcium 9.4 Corrected Calcium 9.5 Phosphorus 4.2 Magnesium 1.9 Total Bilirubin 0.7 AST 15 ALT 14 Alkaline Phosphatase 65 Total Protein 6.5 Albumin 3.9 Globulin 2.6 Albumin/Globulin Ratio 1.5 Coccidioides IgG Ab Negative Coccidioides IgM Ab Negative Hepatitis C Antibody Non Reactive Quality Measures Quality Measures none Assessment & Plan Assessment Current Active Medications: Generic Name Dose Route Start Last Admin Trade Name Freq PRN Reason Stop Dose Admin Acetaminophen 650 mg 01/14/25 17:18 Acetaminophen 325 Mg Tablet PO 02/13/25 17:17 Q6H PRN Fever >101.5 Acetaminophen 650 mg 01/14/25 17:18 Acetaminophen 325 Mg Tablet PO 02/13/25 17:17 Q6H PRN PAIN SCALE 1-3 (mild Fluconazole 400 mg 01/17/25 09:00 Fluconazole 100 Mg Tablet PO 01/24/25 08:59 QDAY FRANCHESCA Ondansetron HCl 4 mg 01/14/25 18:00 Ondansetron Odt 4 Mg Tabrap PO 02/13/25 17:59 Q6HR PRN NAUSEA OR VOMITING Protocol Sodium Chloride 15 ml 01/15/25 14:56 01/15/25 15:10 Sodium Chloride Rt 10% 15 Ml Nebu INH 02/14/25 14:55 15 ml PRN PRN Administration SOLN Plan Ms. Velez is a 29 y/o female with PMH of PCOS, not on any home meds, who presented to the ED with chest pain. CT chest showed MAISHA cavitary lesion. Admitted for cocci vs TB r/o. 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 Admit for active TB vs cocci r/o. Cocci IgM and IgG negative, Hep C Ab negative Patient has not been able to produce enough sputum for AFB x3 Spoke with infection control (ext. [phone]) about options if patient is unable to produce sputum for AFB. Options include BAL or RIPE inpatient for 3 weeks. Discussed options with patient, pending patient's response. Plan: - Airborne isolation until TB ruled out - Pending AFB sputum cultures with NAAT ?3 q8h - Pending Quantiferon, PPD skin test - Pending HIV Ab - ID consulted, appreciate recs - Tylenol for pain/fever PRN - CTM for fever, CBC #RUQ pain - resolved Several months yellow-colored diarrhea that floats No diarrhea episodes in the hospital LFT, total bili WNL Abdominal US showed 5 mm gallbladder polyp, no cholelithiasis, no cholecystitis Plan: - CTM #Hx PCOS BMI 33 A1C 5.3, HDL 31 (low) otherwise lipids WNL Plan: - CTM Dispo: pending TB vs cocci r/o Diet: regular Bowel Reg: none VTE ppx: lovenox 40 mg daily GI ppx: none Code status: Full Plan discussed with Dr. Suarez and Dr. Carolyn Hansen MD PGY1 Attending Provider Attestation/Addendum I, Itzel Leon DO, attest that I was physically present for the bailey portions of the service and evaluated the patient with the resident and I reviewed and discussed the case with the resident and agree with the resident's findings and plans of care as documented above Patient seen and evaluated this AM. Patient is very emotional due to concern for extended admission due to TB rule out. Patient remains asymptomatic. Will induce sputum to obtain AFBs. Patient states she does not wish to be intubated to undergo BAL.
[2025-01-17 08:39] LABS: HIV (1&2) Antibody Rapid Non-Reactive
--- NOTE | 2025-01-17 09:06 | PC.IP ---
Addendum entered by Dorothea Angelo 01/17/25 15:56: Dr. Hansen was made aware at 0910. Original Note: I spoke with Dr. Hansen at 0835 and was made aware that the patient was not able to produce enough sputum for sputum cultures. I then consulted Laurie Pena the TB Nurse from [facility] who suggested a bronchoalveolar lavage for diagnostic testing or starting the patient on the RIPE regimen for a minimum of 3 weeks before even considering discharge.
[2025-01-17] MEDS: SODIUM CHLORIDE RT 10% 15 ML NEBU 5 ML INH (10:20)
[2025-01-17 11:23] LABS: Cult AFB Sendout- Sputum* See Sep Rpt
[2025-01-17] MEDS: SODIUM CHLORIDE RT 10% 15 ML NEBU INH (18:45)
[2025-01-17 20:11] LABS: Cult AFB Sendout- Sputum* See Sep Rpt
[2025-01-18] VITALS (8 sets, daily range): BP systolic 113–142; BP diastolic 65–93; PULSE 82–104; RESP 18–20; TEMP 36.1–36.6; O2SAT 96–98
[2025-01-18 06:31] LABS: Basophils # (Auto) 0.1 Thou/mm3 (0.0-0.2); Basophils % (Auto) 1 % (0-2.5); Eosinophils # (Auto) 0.1 Thou/mm3 (0.0-0.5); Eosinophils % (Auto) 1 % (0-10); Hematocrit 39.8 % (36.0-46.0); Hemoglobin 14.2 g/dL (12.0-16.0); Immature Granulocytes Auto 0.06 Thou/mm3 (0.00-0.00); Lymphocytes # (Auto) 1.9 Thou/mm3 (1.0-4.8); Lymphocytes % (Auto) 21 % (10-50); Mean Corpuscular HGB Conc 35.7 g/dl (31.0-37.0); Mean Corpuscular Hemoglobin 31.4 pg (25.0-35.0); Mean Corpuscular Volume 88 fL (80-100); Monocytes # (Auto) 0.6 Thou/mm3 (0.0-0.8); Monocytes % (Auto) 6 % (0-12); Neutrophils # (Auto) 6.3 Thou/mm3 (1.8-7.7); Neutrophils % (Auto) 70 % (37-80); Nucleated Red Blood Cell # 0.00 Thou/mm3 (0.00-0.00); Nucleated Red Blood Cell % 0 /100 WBC (0); Platelet Count 312 Thou/mm3 (140-440); RDW Standard Deviation 37.6 fL (36.4-46.3); Red Blood Count 4.52 Miln/mm3 (4.00-5.20); White Blood Count 9.1 Thou/mm3 (3.6-11.0)
[2025-01-18 07:10] LABS: Alanine Aminotransferase 18 U/L (10-49); Albumin, Serum 4.5 gm/dL (3.5-5.0); Albumin/Globulin Ratio 1.7 (1.2-2.2); Alkaline Phosphatase 66 U/L (46-116); Anion Gap 9 (7-16); Aspartate Amino Transferase 16 U/L (0-34); BUN/Creatinine Ratio 11 Ratio (12-20); Bilirubin,Total 0.7 mg/dL (0.3-1.2); Blood Urea Nitrogen 8 mg/dL (9-23); Calcium 10.0 mg/dL (8.3-10.6); Calcium (Corrected) 10.0 mg/dL (8.5-10.1); Carbon Dioxide 25.6 mMol/L (20.0-31.0); Chloride 105 mMol/L (98-107); Creatinine (Component) 0.7 mg/dL (0.6-1.3); Estimated Creatinine Clearance 162.9 mL/min (>60); Globulin 2.6 gm/dL (2.3-3.5); Glucose 91 mg/dL (74-106); Magnesium 2.0 mg/dL (1.6-2.6); Osmolality,Calculated 277 (275-295); Phosphorous 4.1 mg/dL (2.4-5.1); Potassium 3.9 mMol/L (3.4-5.1); Sodium 140 mMol/L (136-145); Total Protein 7.1 gm/dL (5.7-8.2); eGFR > 60 See Note
--- NOTE | 2025-01-18 10:31 | ESPR_ITS ---
<Statement entered by Boaz Patterson MD - 01/18/25 17:39> Patient was examined and case was reviewed with team including attending physician. Note reviewed, I agree with most of its contents and agree with the patient's care as documented by Dr. Hansen Patient seen today at the bedside found awake, alert, orientedx3. No overnight events reported. Vitals and labs reviewed. No active complaints at this time. Patient was able to finally produce all 3 sputum samples for AFB's to rule out TB. Case discussed with my attending Dr. Los Patterson MD PGY-2 Disclaimer: Despite multiple revisions, due to the dictation software being used, the document bellow may not be free of grammatical errors including phonetic/typographic errors. However, this does not deter from our commitment to providing health care in the patient's best interest in mind. Documentation for date of: 01/18/25 Subjective Subjective Interval history: No acute events overnight. VSS patient evaluated at bedside. She was able to get all 3 sputum samples for AFB Denies any symptoms. Exam Vital Signs Temp Pulse Resp BP Pulse Ox O2 Del Method 97.5 F 90 18 142/93 H 98 Room Air 01/18/25 08:00 01/18/25 08:00 01/18/25 08:00 01/18/25 08:00 01/18/25 08:00 01/18/25 08:00 Narrative Exam General: No acute distress, well nourished Eye: PERRL, EOMI, normal conjunctiva, no scleral icterus HENT: Normocephalic, atraumatic, normal hearing, moist oral mucosa Neck: Supple, non-tender, no JVD, no lymphadenopathy Lungs: Clear to auscultation bilaterally, non-labored respirations, symmetric chest rise, no use of accessory muscles Heart: Normal S1 and S2, no S3 or S4 appreciated. Normal rate and regular rhythm, no murmurs, rubs gallops, or edema. Peripheral pulses intact bilaterally, capillary refill brisk distally, no LE edema Abdomen: Soft, non-distended, normal bowel sounds. No TTP Musculoskeletal: Normal range of motion and strength, no tenderness or swelling Skin: Skin is warm, dry, no rashes or lesions. Neurologic: Alert, awake and oriented x3. CN II-XII grossly intact. No focal neuro deficits. Psychiatric: Cooperative, appropriate mood and affect Objective Labs 01/19/25 04:35 01/19/25 04:35 Labs: Laboratory Results - last 24 hr 01/18/25 06:00 WBC 9.1 RBC 4.52 Hgb 14.2 Hct 39.8 MCV 88 MCH 31.4 MCHC 35.7 RDW Std Deviation 37.6 Plt Count 312 Neut % (Auto) 70 Lymph % (Auto) 21 [place] % (Auto) 6 Eos % (Auto) 1 Baso % (Auto) 1 Neut # (Auto) 6.3 Lymph # (Auto) 1.9 [place] # (Auto) 0.6 Eos # (Auto) 0.1 Baso # (Auto) 0.1 Immature Gran # (Auto) 0.06 H Absolute Nucleated RBC 0.00 Immature Gran % 1 H Nucleated RBC % 0 Sodium 140 Potassium 3.9 Chloride 105 Carbon Dioxide 25.6 Anion Gap 9 BUN 8 L Creatinine 0.7 Estim Creat Clear Calc 162.9 eGFR > 60 BUN/Creatinine Ratio 11 L Glucose 91 Calculated Osmolality 277 Calcium 10.0 Corrected Calcium 10.0 Phosphorus 4.1 Magnesium 2.0 Total Bilirubin 0.7 AST 16 ALT 18 Alkaline Phosphatase 66 Total Protein 7.1 Albumin 4.5 D Globulin 2.6 Albumin/Globulin Ratio 1.7 Quality Measures Quality Measures none Assessment & Plan Assessment Current Active Medications: Generic Name Dose Route Start Last Admin Trade Name Freq PRN Reason Stop Dose Admin Acetaminophen 650 mg 01/14/25 17:18 Acetaminophen 325 Mg Tablet PO 02/13/25 17:17 Q6H PRN Fever >101.5 Acetaminophen 650 mg 01/14/25 17:18 Acetaminophen 325 Mg Tablet PO 02/13/25 17:17 Q6H PRN PAIN SCALE 1-3 (mild Fluconazole 400 mg 01/17/25 09:00 01/18/25 08:33 Fluconazole 100 Mg Tablet PO 01/24/25 08:59 Not Given QDAY FRANCHESCA Ibuprofen 400 mg 01/17/25 08:33 Ibuprofen Tab 400 Mg Tablet PO 02/16/25 08:32 Q8HR PRN Pain 1-3 Or Fever > 101.5 Protocol Ondansetron HCl 4 mg 01/14/25 18:00 Ondansetron Odt 4 Mg Tabrap PO 02/13/25 17:59 Q6HR PRN NAUSEA OR VOMITING Protocol Sodium Chloride 15 ml 01/15/25 14:56 01/17/25 18:45 Sodium Chloride Rt 10% 15 Ml Nebu INH 02/14/25 14:55 15 ml PRN PRN Administration SOLN Plan Ms. Velez is a 29 y/o female with PMH of PCOS, not on any home meds, who presented to the ED with chest pain. CT chest showed MAISHA cavitary lesion. Admitted for cocci vs TB r/o. 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 Admit for active TB vs cocci r/o. Cocci IgM and IgG negative, Hep C Ab negative, HIV negative Plan: - Airborne isolation until TB ruled out - Pending AFB sputum cultures with NAAT ?3 q8h - Pending Quantiferon, PPD skin test - ID consulted, appreciate recs - Tylenol for pain/fever PRN - CTM for fever, CBC - D/C Fluconazole as low suspicion for cocci, cocci IgM and IgG negative. Patient was refusing this med #RUQ pain - resolved Several months yellow-colored diarrhea that floats No diarrhea episodes in the hospital LFT, total bili WNL Abdominal US showed 5 mm gallbladder polyp, no cholelithiasis, no cholecystitis Plan: - CTM #Hx PCOS BMI 33 A1C 5.3, HDL 31 (low) otherwise lipids WNL Plan: - CTM Dispo: pending TB vs cocci r/o Diet: regular Bowel Reg: none VTE ppx: lovenox 40 mg daily GI ppx: none Code status: Full Plan discussed with Dr. Suarez and Dr. Los Hansen MD PGY1 Attending Provider Attestation/Addendum I have examined the patient, reviewed labs and imaging findings, discussed the case with the resident(s), and reviewed entered orders. I agree with the plan of care as outlined in this note, with these additional summaries/recommendations: Patient seen at bedside. No acute overnight events. She is produce sputum for AFB x 2 currently undergoing further sputum collection to complete 3 AFB studies. Patient admitted for TB ruled out given findings of 17 mm thick walled cavitary lesion in the left upper lobe with adjacent subtle miliary nodular infiltrate in the left upper lobe. Cocci serology negative thus far. In-house infectious disease following. We will send AFBs for analysis and follow-up results when available. Patient updated on the plan and agreement. Please see residents note for additional details and management. Dr. Los MD
[2025-01-18] MEDS: SODIUM CHLORIDE RT 10% 15 ML NEBU INH (12:28)
--- NOTE | 2025-01-18 12:53 | ESPR_ITS ---
Subjective Subjective Interval history: rash of cavitary pulm disease noted. cocci neg. no hiv. no hep c. Exam Vital Signs Temp Pulse Resp BP Pulse Ox O2 Del Method 97.5 F 94 18 139/65 H 98 Room Air 01/18/25 11:52 01/18/25 12:29 01/18/25 12:29 01/18/25 11:52 01/18/25 12:29 01/18/25 11:52 Narrative Exam benign exam. no wt change. no hemoptysis. Objective - Internal Medicine Labs 01/18/25 06:00 01/18/25 06:00 Labs: Laboratory Results - last 24 hr 01/18/25 06:00 WBC 9.1 RBC 4.52 Hgb 14.2 Hct 39.8 MCV 88 MCH 31.4 MCHC 35.7 RDW Std Deviation 37.6 Plt Count 312 Neut % (Auto) 70 Lymph % (Auto) 21 [place] % (Auto) 6 Eos % (Auto) 1 Baso % (Auto) 1 Neut # (Auto) 6.3 Lymph # (Auto) 1.9 [place] # (Auto) 0.6 Eos # (Auto) 0.1 Baso # (Auto) 0.1 Immature Gran # (Auto) 0.06 H Absolute Nucleated RBC 0.00 Immature Gran % 1 H Nucleated RBC % 0 Sodium 140 Potassium 3.9 Chloride 105 Carbon Dioxide 25.6 Anion Gap 9 BUN 8 L Creatinine 0.7 Estim Creat Clear Calc 162.9 eGFR > 60 BUN/Creatinine Ratio 11 L Glucose 91 Calculated Osmolality 277 Calcium 10.0 Corrected Calcium 10.0 Phosphorus 4.1 Magnesium 2.0 Total Bilirubin 0.7 AST 16 ALT 18 Alkaline Phosphatase 66 Total Protein 7.1 Albumin 4.5 D Globulin 2.6 Albumin/Globulin Ratio 1.7 Assessment & Plan A&P Narrative cavitary pulm disease, cocci neg locally. name showed up on list today. another cavity seen in ed. extensive problem list no afb's so far noted nothing back from health dept so far 2 sputums collected per staff, so maintain isolation for now. qtf also pending. pt has third sputum in her hand. Time Spent With Patient Time: Total time spent is greater than 50% in coordination of care (as documented) at patient's floor/unit and/or counseling patient:
--- NOTE | 2025-01-18 13:18 | PD.ADDPROG ---
Addendum Progress Note Addendum Date of report being addended: 01/18/25 Narrative: pulm cavities can be seen with CA and prior infection of all types. not just tb or cocci. so if afb neg. look at pt and determine if any rx needed
[2025-01-18 15:31] LABS: Cult AFB Sendout- Sputum* See Sep Rpt
[2025-01-19] VITALS: BP 116/82; PULSE 75; RESP 18; TEMP 37.1; O2SAT 96
--- NOTE | 2025-01-19 02:11 | PC.NURSE ---
Pt asleep, no s/s of distress.
[2025-01-19 04:00] VITALS: BP 140/88; PULSE 78; RESP 20; TEMP 36.6; O2SAT 95
[2025-01-19 05:32] LABS: Basophils # (Auto) 0.1 Thou/mm3 (0.0-0.2); Basophils % (Auto) 1 % (0-2.5); Eosinophils # (Auto) 0.2 Thou/mm3 (0.0-0.5); Eosinophils % (Auto) 2 % (0-10); Hematocrit 42.0 % (36.0-46.0); Hemoglobin 14.6 g/dL (12.0-16.0); Immature Granulocytes Auto 0.06 Thou/mm3 (0.00-0.00); Lymphocytes # (Auto) 2.3 Thou/mm3 (1.0-4.8); Lymphocytes % (Auto) 24 % (10-50); Mean Corpuscular HGB Conc 34.8 g/dl (31.0-37.0); Mean Corpuscular Hemoglobin 30.7 pg (25.0-35.0); Mean Corpuscular Volume 88 fL (80-100); Monocytes # (Auto) 0.7 Thou/mm3 (0.0-0.8); Monocytes % (Auto) 8 % (0-12); Neutrophils # (Auto) 6.4 Thou/mm3 (1.8-7.7); Neutrophils % (Auto) 65 % (37-80); Nucleated Red Blood Cell # 0.00 Thou/mm3 (0.00-0.00); Nucleated Red Blood Cell % 0 /100 WBC (0); Platelet Count 296 Thou/mm3 (140-440); RDW Standard Deviation 38.4 fL (36.4-46.3); Red Blood Count 4.76 Miln/mm3 (4.00-5.20); White Blood Count 9.7 Thou/mm3 (3.6-11.0)
[2025-01-19 06:02] LABS: Alanine Aminotransferase 24 U/L (10-49); Albumin, Serum 4.6 gm/dL (3.5-5.0); Albumin/Globulin Ratio 1.7 (1.2-2.2); Alkaline Phosphatase 72 U/L (46-116); Anion Gap 9 (7-16); Aspartate Amino Transferase 22 U/L (0-34); BUN/Creatinine Ratio 11 Ratio (12-20); Bilirubin,Total 0.8 mg/dL (0.3-1.2); Blood Urea Nitrogen 9 mg/dL (9-23); Calcium 9.9 mg/dL (8.3-10.6); Calcium (Corrected) 9.9 mg/dL (8.5-10.1); Carbon Dioxide 26.2 mMol/L (20.0-31.0); Chloride 106 mMol/L (98-107); Creatinine (Component) 0.8 mg/dL (0.6-1.3); Estimated Creatinine Clearance 142.5 mL/min (>60); Globulin 2.7 gm/dL (2.3-3.5); Glucose 93 mg/dL (74-106); Magnesium 2.2 mg/dL (1.6-2.6); Osmolality,Calculated 279 (275-295); Phosphorous 3.8 mg/dL (2.4-5.1); Potassium 4.1 mMol/L (3.4-5.1); Sodium 141 mMol/L (136-145); Total Protein 7.3 gm/dL (5.7-8.2); eGFR > 60 See Note
--- NOTE | 2025-01-19 07:15 | ESCONSULT_ITS ---
RE: MARGARET WATERS : 1995 DATE OF CONSULTATION: 01/16/2025 REFERRING PHYSICIAN: Dr. Madison. REASON FOR CONSULTATION: Cavitary pulmonary process in both lungs. 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 She has been her whole life in [place]. I had asked where she lived. She herself is a former smoker having quit about 6 months ago. She came to the ER for other reasons and eventually had a chest x-ray done and a chest CT done that showed bilateral upper lobe cavitary change. She is unable to produce significant sputum for AFB and has a pending QuantiFERON. She has always been PPD negative. She was PPD negative for her workplace several years ago. She has not been retested since. PAST SURGICAL HISTORY: None. PAST MEDICAL HISTORY: Other than a wrist fracture when she was 2 years old. ALLERGIES: TO CIPRO, ADHESIVE, AND IODINATED CONTRAST. IMMUNIZATIONS: Last tetanus is about 4 years ago. She does nottake flu shot every year. She has not COVID vaccine or pneumococcal vaccine. FAMILY HISTORY: Positive for a maternal grandmother with colon cancer stage III. She apparently from it. SOCIAL HISTORY: She lives at home with others. 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 She has been there about 4 years. She knows no one at with TB where she works and her QuantiFERON is pending. Her AFBs are pending, but she is not coughing up any sputum. She feels better and would like to go home if possible. PHYSICAL EXAMINATION: The exam is benign. The patient is alert, cooperative, well-appearing. She is ambulatory, alert and cooperative. ASSESSMENT AND PLAN: Cavitary pulmonary process on imaging without much hemoptysis and no weight loss. No fevers, chills, sweats, or other secondary symptoms. The patient may have had prior [place] fever, but we just do not know. The Radiology interpretation does take precedence, so our team will probably go ahead and she has a history of asthma and so she may have a little bit of hyperreactive activity noted. If she had prior [place] fever, her test may be negative, but imaging changes may persist. Her cocci test is pending, so we will not do any cf test unless her test locally is positive. I will look forward to seeing her again Thursday if she remains, but if she goes home before then I have no objection. DT: ::34 TT: 11:28:00 Ref: [id number] - TID: [id number] MTDD
--- NOTE | 2025-01-19 07:23 | ESPR_ITS ---
<Statement entered by Boaz Patterson MD - 01/19/25 15:32> Patient was examined and case was reviewed with team including attending physician. Note reviewed, I agree with most of its contents and agree with the patient's care as documented by Dr. Hansen Patient seen today at the bedside found awake, alert, orientedx3. No overnight events reported. Vitals and labs reviewed. QuantiFERON is negative at this time. However still pending AFB samples. Case discussed with my attending Dr. Los Patterson MD PGY-2 Disclaimer: Despite multiple revisions, due to the dictation software being used, the document bellow may not be free of grammatical errors including phonetic/typographic errors. However, this does not deter from our commitment to providing health care in the patient's best interest in mind. Documentation for date of: 01/19/25 Subjective Subjective Interval history: NAEO. VSS. Able to obtain all 3 AFB sputum samples, pending results. Patient evaluated at bedside. Denies new symptoms. Exam Vital Signs Temp Pulse Resp BP Pulse Ox O2 Del Method 98 F 78 20 140/88 H 95 Room Air 01/19/25 04:00 01/19/25 04:00 01/19/25 04:00 01/19/25 04:00 01/19/25 04:00 01/19/25 04:00 Narrative Exam General: No acute distress, well nourished Eye: PERRL, EOMI, normal conjunctiva, no scleral icterus HENT: Normocephalic, atraumatic, normal hearing, moist oral mucosa Neck: Supple, non-tender, no JVD, no lymphadenopathy Lungs: Clear to auscultation bilaterally, non-labored respirations, symmetric chest rise, no use of accessory muscles Heart: Normal S1 and S2, no S3 or S4 appreciated. Normal rate and regular rhythm, no murmurs, rubs gallops, or edema. Peripheral pulses intact bilaterally, capillary refill brisk distally, no LE edema Abdomen: Soft, non-distended, normal bowel sounds. No TTP Musculoskeletal: Normal range of motion and strength, no tenderness or swelling Skin: Skin is warm, dry, no rashes or lesions. Neurologic: Alert, awake and oriented x3. CN II-XII grossly intact. No focal neuro deficits. Psychiatric: Cooperative, appropriate mood and affect Objective Labs 01/19/25 04:35 01/19/25 04:35 Labs: Laboratory Results - last 24 hr 01/16/25 01/17/25 01/19/25 06:06 10:40 04:35 WBC 9.7 RBC 4.76 Hgb 14.6 Hct 42.0 MCV 88 MCH 30.7 MCHC 34.8 RDW Std Deviation 38.4 Plt Count 296 Neut % (Auto) 65 Lymph % (Auto) 24 [place] % (Auto) 8 Eos % (Auto) 2 Baso % (Auto) 1 Neut # (Auto) 6.4 Lymph # (Auto) 2.3 [place] # (Auto) 0.7 Eos # (Auto) 0.2 Baso # (Auto) 0.1 Immature Gran # (Auto) 0.06 H Absolute Nucleated RBC 0.00 Immature Gran % 1 H Nucleated RBC % 0 Sodium 141 Potassium 4.1 Chloride 106 Carbon Dioxide 26.2 Anion Gap 9 BUN 9 Creatinine 0.8 Estim Creat Clear Calc 142.5 eGFR > 60 BUN/Creatinine Ratio 11 L Glucose 93 Calculated Osmolality 279 Calcium 9.9 Corrected Calcium 9.9 Phosphorus 3.8 Magnesium 2.2 Total Bilirubin 0.8 AST 22 ALT 24 Alkaline Phosphatase 72 Total Protein 7.3 Albumin 4.6 Globulin 2.7 Albumin/Globulin Ratio 1.7 Mycobacterial Culture See Sep Rpt TB Test (QFT) See Sep Rpt Quality Measures Quality Measures none Assessment & Plan Assessment Current Active Medications: Generic Name Dose Route Start Last Admin Trade Name Freq PRN Reason Stop Dose Admin Acetaminophen 650 mg 01/14/25 17:18 Acetaminophen 325 Mg Tablet PO 02/13/25 17:17 Q6H PRN Fever >101.5 Acetaminophen 650 mg 01/14/25 17:18 Acetaminophen 325 Mg Tablet PO 02/13/25 17:17 Q6H PRN PAIN SCALE 1-3 (mild Ibuprofen 400 mg 01/17/25 08:33 Ibuprofen Tab 400 Mg Tablet PO 02/16/25 08:32 Q8HR PRN Pain 1-3 Or Fever > 101.5 Protocol Ondansetron HCl 4 mg 01/14/25 18:00 Ondansetron Odt 4 Mg Tabrap PO 02/13/25 17:59 Q6HR PRN NAUSEA OR VOMITING Protocol Sodium Chloride 15 ml 01/15/25 14:56 01/18/25 12:28 Sodium Chloride Rt 10% 15 Ml Nebu INH 02/14/25 14:55 15 ml PRN PRN Administration SOLN Plan Ms. Velez is a 29 y/o female with PMH of PCOS, not on any home meds, who presented to the ED with chest pain. CT chest showed MAISHA cavitary lesion. Admitted for cocci vs TB r/o. 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 Admit for active TB vs cocci r/o. Cocci IgM and IgG negative, Hep C Ab negative, HIV negative Quantiferon negative, TB NAAT negative, PPD negative Plan: - Airborne isolation until TB ruled out - Pending cocci IgM repeat - Pending AFB cx - Pending cocci cx - ID consulted, appreciate recs - Tylenol for pain/fever PRN - CTM for fever, CBC #RUQ pain - resolved Several months yellow-colored diarrhea that floats No diarrhea episodes in the hospital LFT, total bili WNL Abdominal US showed 5 mm gallbladder polyp, no cholelithiasis, no cholecystitis Plan: - CTM #Hx PCOS BMI 33 A1C 5.3, HDL 31 (low) otherwise lipids WNL Plan: - CTM Dispo: pending TB r/o Diet: regular Bowel Reg: none VTE ppx: lovenox 40 mg daily GI ppx: none Code status: Full Plan discussed with Dr. Suarez and Dr. Los Hansen MD PGY1 Attending Provider Attestation/Addendum I have examined the patient, reviewed labs and imaging findings, discussed the case with the resident(s), and reviewed entered orders. I agree with the plan of care as outlined in this note, with these additional summaries/recommendations: Patient seen at bedside. No acute overnight events and patient has no acute concerns today. She was able to produce 3 AFB samples. Quantiferon gold did return negative although we will await AFBs before active TB can be ruled out. Infectious disease following. Patient admitted for TB ruled out given findings of 17 mm thick walled cavitary lesion in the left upper lobe with adjacent subtle miliary nodular infiltrate in the left upper lobe. Cocci serology negative thus far although cavitary lesion may be related to prior cocci infection. In-house infectious disease following. We will send AFBs for analysis and follow-up results when available. Patient updated on the plan and agreement. Please see residents note for additional details and management. Dr. Los MD
[2025-01-19 07:46] VITALS: BP 124/68; PULSE 80; RESP 18; TEMP 36.4; O2SAT 97
[2025-01-19 12:00] VITALS: BP 144/88; PULSE 93; RESP 17; TEMP 36.7; O2SAT 97
[2025-01-19 12:02] LABS: Cocci Serology, IgM Negative (Negative)
[2025-01-19 13:22] VITALS: BMI 41.3
--- NOTE | 2025-01-19 15:05 | PC.DIETICIAN ---
To request approval to change her diet to an 1800 kilocalorie, cardiac, low fat, diet secondary to her low HDL, hx of PCOS, and high BMI, w/two 8oz supplements w/her meals, at bkfst, and at lunch i.e., Ensure plus, high protein, therapeutic nutrition shake, to provide an additional 700 calories, and 40g of protein, to assist her with her possible catabolic TB health condition, high BMI, and higher nutritional needs.
[2025-01-19 16:00] VITALS: BP 136/78; PULSE 90; RESP 17; TEMP 36.7; O2SAT 97
--- NOTE | 2025-01-19 16:04 | PC.DIETICIAN ---
Addendum: Recommend low fat diet.
[2025-01-19 20:00] VITALS: BP 117/78; PULSE 85; RESP 18; TEMP 36.1; O2SAT 98
[2025-01-20] VITALS: BP 121/70; PULSE 75; RESP 16; TEMP 36.1; O2SAT 98
[2025-01-20 04:00] VITALS: BP 134/79; PULSE 77; RESP 18; TEMP 36.1; O2SAT 98
[2025-01-20 05:54] LABS: Basophils # (Auto) 0.1 Thou/mm3 (0.0-0.2); Basophils % (Auto) 1 % (0-2.5); Eosinophils # (Auto) 0.2 Thou/mm3 (0.0-0.5); Eosinophils % (Auto) 2 % (0-10); Hematocrit 39.9 % (36.0-46.0); Hemoglobin 14.1 g/dL (12.0-16.0); Immature Granulocytes Auto 0.08 Thou/mm3 (0.00-0.00); Lymphocytes # (Auto) 2.2 Thou/mm3 (1.0-4.8); Lymphocytes % (Auto) 23 % (10-50); Mean Corpuscular HGB Conc 35.3 g/dl (31.0-37.0); Mean Corpuscular Hemoglobin 31.0 pg (25.0-35.0); Mean Corpuscular Volume 88 fL (80-100); Monocytes # (Auto) 0.6 Thou/mm3 (0.0-0.8); Monocytes % (Auto) 7 % (0-12); Neutrophils # (Auto) 6.2 Thou/mm3 (1.8-7.7); Neutrophils % (Auto) 66 % (37-80); Nucleated Red Blood Cell # 0.00 Thou/mm3 (0.00-0.00); Nucleated Red Blood Cell % 0 /100 WBC (0); Platelet Count 251 Thou/mm3 (140-440); RDW Standard Deviation 37.5 fL (36.4-46.3); Red Blood Count 4.55 Miln/mm3 (4.00-5.20); White Blood Count 9.4 Thou/mm3 (3.6-11.0)
[2025-01-20 06:19] LABS: Alanine Aminotransferase 31 U/L (10-49); Alkaline Phosphatase 70 U/L (46-116); Anion Gap 8 (7-16); Aspartate Amino Transferase 29 U/L (0-34); BUN/Creatinine Ratio 11 Ratio (12-20); Bilirubin,Total 0.8 mg/dL (0.3-1.2); Blood Urea Nitrogen 9 mg/dL (9-23); Calcium 9.3 mg/dL (8.3-10.6); Carbon Dioxide 23.8 mMol/L (20.0-31.0); Chloride 106 mMol/L (98-107); Creatinine (Component) 0.8 mg/dL (0.6-1.3); Estimated Creatinine Clearance 142.5 mL/min (>60); Glucose 95 mg/dL (74-106); Magnesium 2.0 mg/dL (1.6-2.6); Osmolality,Calculated 274 (275-295); Phosphorous 3.3 mg/dL (2.4-5.1); Potassium 3.9 mMol/L (3.4-5.1); Sodium 138 mMol/L (136-145); Total Protein 6.8 gm/dL (5.7-8.2); eGFR > 60 See Note
[2025-01-20 06:24] LABS: Albumin, Serum 4.0 gm/dL (3.5-5.0); Albumin/Globulin Ratio 1.4 (1.2-2.2); Calcium (Corrected) 9.3 mg/dL (8.5-10.1); Globulin 2.8 gm/dL (2.3-3.5)
--- NOTE | 2025-01-20 07:44 | ESPR_ITS ---
Subjective Subjective Interval history: afb's and qtf neg. cocci neg. cavities can form from prior infection or CA. Exam Vital Signs Temp Pulse Resp BP Pulse Ox O2 Del Method 97.0 F 77 18 134/79 H 98 Room Air 01/20/25 04:00 01/20/25 04:00 01/20/25 04:00 01/20/25 04:00 01/20/25 04:00 01/20/25 04:00 Narrative Exam seen on thu. doing ok. Objective - Internal Medicine Labs 01/20/25 05:29 01/20/25 05:29 Labs: Laboratory Results - last 24 hr 01/19/25 01/20/25 04:35 05:29 WBC 9.4 RBC 4.55 Hgb 14.1 Hct 39.9 MCV 88 MCH 31.0 MCHC 35.3 RDW Std Deviation 37.5 Plt Count 251 D Neut % (Auto) 66 Lymph % (Auto) 23 [place] % (Auto) 7 Eos % (Auto) 2 Baso % (Auto) 1 Neut # (Auto) 6.2 Lymph # (Auto) 2.2 [place] # (Auto) 0.6 Eos # (Auto) 0.2 Baso # (Auto) 0.1 Immature Gran # (Auto) 0.08 H Absolute Nucleated RBC 0.00 Immature Gran % 1 H Nucleated RBC % 0 Sodium 138 Potassium 3.9 Chloride 106 Carbon Dioxide 23.8 Anion Gap 8 BUN 9 Creatinine 0.8 Estim Creat Clear Calc 142.5 eGFR > 60 BUN/Creatinine Ratio 11 L Glucose 95 Calculated Osmolality 274 L Calcium 9.3 Corrected Calcium 9.3 Phosphorus 3.3 Magnesium 2.0 Total Bilirubin 0.8 AST 29 ALT 31 Alkaline Phosphatase 70 Total Protein 6.8 Albumin 4.0 D Globulin 2.8 Albumin/Globulin Ratio 1.4 Coccidioides IgM Ab Negative Assessment & Plan A&P Narrative cavitary pulm disease, cocci neg locally. afb neg, qtf neg extensive problem list ok for home unless afb's positive . Time Spent With Patient Time: Total time spent is greater than 50% in coordination of care (as documented) at patient's floor/unit and/or counseling patient:
[2025-01-20 08:00] VITALS: BP 132/87; PULSE 82; RESP 18; TEMP 36.6; O2SAT 97
--- NOTE | 2025-01-20 09:15 | PD.RESPRO ---
Documentation for date of: 01/20/25 Subjective Subjective Interval history: pt is seen at bedside today and is alert and oriented x4. Pt was notified of her results from her x1 AFB test result which was negative for Acid Fast Bacilli growth. pt was notified that results for the following 2 sputum results are still pending. pt reports that she has not had any episodes of abdominal pain since yesterday, which were a concern initially during the beginning of her hospitalization. pt does not have any further questions or concerns at this time. Exam Vital Signs Temp Pulse Resp BP Pulse Ox O2 Del Method 97.9 F 82 18 132/87 H 97 Room Air 01/20/25 08:00 01/20/25 08:00 01/20/25 08:00 01/20/25 08:00 01/20/25 08:00 01/20/25 08:00 Narrative Exam General: No acute distress, well nourished Eye: PERRL, EOMI, normal conjunctiva, no scleral icterus HENT: Normocephalic, atraumatic, normal hearing, moist oral mucosa Neck: Supple, non-tender, no JVD, no lymphadenopathy Lungs: Clear to auscultation bilaterally, non-labored respirations, symmetric chest rise, no use of accessory muscles Heart: Normal S1 and S2, no S3 or S4 appreciated. Normal rate and regular rhythm, no murmurs, rubs gallops, or edema. Peripheral pulses intact bilaterally, capillary refill brisk distally, no LE edema Abdomen: Soft, non-distended, normal bowel sounds. No TTP Musculoskeletal: Normal range of motion and strength, no tenderness or swelling Skin: Skin is warm, dry, no rashes or lesions. Neurologic: Alert, awake and oriented x3. CN II-XII grossly intact. No focal neuro deficits. Psychiatric: Cooperative, appropriate mood and affect Objective Labs 01/20/25 05:29 01/20/25 05:29 Labs: Laboratory Results - last 24 hr 01/19/25 01/20/25 04:35 05:29 WBC 9.4 RBC 4.55 Hgb 14.1 Hct 39.9 MCV 88 MCH 31.0 MCHC 35.3 RDW Std Deviation 37.5 Plt Count 251 D Neut % (Auto) 66 Lymph % (Auto) 23 [place] % (Auto) 7 Eos % (Auto) 2 Baso % (Auto) 1 Neut # (Auto) 6.2 Lymph # (Auto) 2.2 [place] # (Auto) 0.6 Eos # (Auto) 0.2 Baso # (Auto) 0.1 Immature Gran # (Auto) 0.08 H Absolute Nucleated RBC 0.00 Immature Gran % 1 H Nucleated RBC % 0 Sodium 138 Potassium 3.9 Chloride 106 Carbon Dioxide 23.8 Anion Gap 8 BUN 9 Creatinine 0.8 Estim Creat Clear Calc 142.5 eGFR > 60 BUN/Creatinine Ratio 11 L Glucose 95 Calculated Osmolality 274 L Calcium 9.3 Corrected Calcium 9.3 Phosphorus 3.3 Magnesium 2.0 Total Bilirubin 0.8 AST 29 ALT 31 Alkaline Phosphatase 70 Total Protein 6.8 Albumin 4.0 D Globulin 2.8 Albumin/Globulin Ratio 1.4 Coccidioides IgM Ab Negative Quality Measures Quality Measures none Assessment & Plan Assessment Current Active Medications: Generic Name Dose Route Start Last Admin Trade Name Freq PRN Reason Stop Dose Admin Acetaminophen 650 mg 01/14/25 17:18 Acetaminophen 325 Mg Tablet PO 02/13/25 17:17 Q6H PRN Fever >101.5 Acetaminophen 650 mg 01/14/25 17:18 Acetaminophen 325 Mg Tablet PO 02/13/25 17:17 Q6H PRN PAIN SCALE 1-3 (mild Ibuprofen 400 mg 01/17/25 08:33 Ibuprofen Tab 400 Mg Tablet PO 02/16/25 08:32 Q8HR PRN Pain 1-3 Or Fever > 101.5 Protocol Ondansetron HCl 4 mg 01/14/25 18:00 Ondansetron Odt 4 Mg Tabrap PO 02/13/25 17:59 Q6HR PRN NAUSEA OR VOMITING Protocol Sodium Chloride 15 ml 01/15/25 14:56 01/18/25 12:28 Sodium Chloride Rt 10% 15 Ml Nebu INH 02/14/25 14:55 15 ml PRN PRN Administration SOLN Plan Ms. Velez is a 29 y/o female with PMH of PCOS, not on any home meds, who presented to the ED with chest pain. CT chest showed MAISHA cavitary lesion. Admitted for cocci vs TB r/o. 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 Admit for active TB vs cocci r/o. Cocci IgM negative, Cocci IgG results pending, Hep C Ab negative, HIV negative Quantiferon negative, TB NAAT negative, PPD negative Plan: - Airborne isolation until TB ruled out - cocci IgM repeat negative - Pending cocci IgG - Pending AFB cx - Pending cocci cx - ID consulted, appreciate recs - Tylenol for pain/fever PRN - CTM for fever, CBC #RUQ pain - resolved Several months yellow-colored diarrhea that floats No diarrhea episodes in the hospital LFT, total bili WNL Abdominal US showed 5 mm gallbladder polyp, no cholelithiasis, no cholecystitis Plan: - CTM #Hx PCOS BMI 33 A1C 5.3, HDL 31 (low) otherwise lipids WNL Plan: - CTM Plan was discussed with Senior Resident Dr. Suarez and attending physician Dr. Carolyn Florence (Medical Student)
[2025-01-20 12:00] VITALS: BP 155/88; PULSE 90; RESP 18; TEMP 36.5; O2SAT 98
[2025-01-20 15:11] LABS: Cocci Serology, IgG Negative (Negative)
--- NOTE | 2025-01-20 15:15 | ESDS_ITS ---
<Statement entered by Itzel Leon DO - 01/21/25 09:24> I, Itzel Leon DO, attest that I was physically present for the bailey portions of the service and evaluated the patient with the resident and I reviewed and discussed the case with the resident and agree with the resident's findings and plans of care as documented above <Statement entered by Boaz Patterson MD - 01/20/25 22:02> Patient was examined and case was reviewed with team including attending physician. Note reviewed, I agree with most of its contents and agree with the patient's care as documented by Cresencio Patterson MD PGY-2 Planned Discharge Date 01/20/25 DS: Providers Provider Date of admission: 01/14/25 17:18 Primary care physician: Livan Patterson MD Admitting Provider: Yonny Madison MD Attending Provider on Admission: Itzel Leon DO Consults: 01/14/25 17:46 Consult to Infectious Diseases Stat Comment: TB rule out Consulting Provider: Armando Lewis 01/14/25 22:35 Referral Infection Control Routine Comment: Reason for Infection Control Referral: Patient In Isolation Attending Provider on DC: Itzel Leon DO Discharging Provider: Froilan CollinsStudesia Patterson MD DS: Diagnosis Problem List Completed Was Problem List Reviewed/Reconciled?: Yes Hospital Course Hospital Course Hospital course: Ms. Velez is a 29 y/o female with PMH of PCOS, not on any home meds, who presented to the ED with chest pain. Imaging ordered by the ED resulted in a CT chest which showed MAISHA cavitary lesion. Patient was under suspicion of TB given findings of 17 mm thick walled cavitary lesion in the left upper lobe with adjacent subtle miliary nodular infiltrate in the left upper lobe. Pt was admitted for cocci vs TB r/o. Infectious disease was consulted and the service did not have any recommendations for this patient. Pt was not started on or provided any medications during the course of her hospitalization. Pt underwent an abdominal ultrasound due to her complaint of Right Upper Quadrant pain and was found to have a 5 mm polyp of her gallbladder. Quantiferon gold did return negative. AFB culture x3 was negative for growth of Acid Fast Bacilli and the [place] [facility] has cleared this patient for discharge from a public health standpoint pt is medically stable at time of discharge Follow up with your primary care physician within 1 week of discharge Should your symptoms recur or worsen patient is instructed to return to the ED # Cavity lesion on left upper lobe # TB ruled out #RUQ pain - resolved #Hx PCOS Plan was discussed with senior resident Dr. Suarez and attending physician Dr. Carolyn Florence (Medical Student) Status at Discharge Functional status at discharge: independent ambulation Overall status at discharge: patient is back to baseline Time Spent with Patient Time attestation: Total time spent providing and/or coordinating discharge services: Time spent: Greater than 30 minutes Exam Vital Signs Temp Pulse Resp BP Pulse Ox O2 Del Method 97.7 F 90 18 155/88 H 98 Room Air 01/20/25 12:00 01/20/25 12:00 01/20/25 12:00 01/20/25 12:00 01/20/25 12:00 01/20/25 12:00 Discharge Plan Plan Patient Disposition: HOME (Self Care) Patient condition on transfer: Stable Care Plan Goals: Follow up with your primary care physician within 1 week of discharge Should your symptoms recur or worsen patient is instructed to return to the ED. Prescriptions/Referrals Prescriptions/Med Rec: Discontinued acetaminophen 325 mg capsule 975 mg PO Q6H PRN (Reason: pain) Qty: 30 0RF Referrals: Livan Patterson MD [Primary Care Provider] - Patient/Caregiver Discharge Instructions Education Materials: Your Body's Response to Anxiety, Handwashing Tips for Patients ... Print Language: Tristanian Stand Alone Forms: Melanie Award Info., Patient Portal Info Letter Discharge Order Discharge Orders: Discharge (Routine); Ordered 01/20/25 Ordered By: Boaz Patterson Quality Discharge Quality Measures none
--- NOTE | 2025-01-20 15:46 | PC.IP ---
[facility] DOWN from approx 1330 - 1530 Daiana BAUMAN RN Spoke to LAUREL SALAZAR who stated PT can be discharged. Daiana spoke to RN and to ABHIJIT Hillman to make aware.
== END 2025-01-20 15:58 | disposition home or self-care (01) | DRG 144 ==
LOC: SERX 15:20 → SERHOLD 17:52 → S3SX 01-16 06:28
PROVIDERS: Internal Medicine Infectious Disease; Nurse Practitioner Family; Student in an Organized Health Care Education/Training Program; Admitting Provider Student in an Organized Health Care Education/Training Program; Emergency Provider Emergency Medicine; PCP Family Medicine; Visit Provider Internal Medicine
DX: R91.1 Solitary pulmonary nodule (principal); Z68.33 Body mass index [BMI] 33.0-33.9, adult; R07.9 Chest pain, unspecified; K82.4 Cholesterolosis of gallbladder; F41.0 Panic disorder [episodic paroxysmal anxiety]; B38.9 Coccidioidomycosis, unspecified; I47.20 Ventricular tachycardia, unspecified; Z22.7 Latent tuberculosis; J18.9 Pneumonia, unspecified organism; J45.909 Unspecified asthma, uncomplicated; Z78.9 Other specified health status; Z87.891 Personal history of nicotine dependence
CPT/HCPCS: 36415; 71045; 71250; 76705; 80053; 80061; 80307; 81001; 83036; 83735; 84100; 84484; 85025; 85730; 86331; 86480; 86580; 86635; 86703; 86803; 87015; 87116; 87205; 87206; 87811; 89220; 93005; 99285; 94640; A9270

== ENCOUNTER 2025-03-25 19:03 | Emergency (ER) | payer BC, SELFPAY ==
[2025-03-25 19:04] VITALS: BMI 40.7
[2025-03-25 19:15] VITALS: BP 131/88; PULSE 94; RESP 18; TEMP 37; O2SAT 98
--- NOTE | 2025-03-25 19:20 | XR_ITS ---
Examination: Complete OB ultrasound, less than 14 weeks, transabdominal Date and time of exam: March 25, 2025, 1945 hours INDICATIONS: Pelvic cramping and vaginal bleeding beginning 5:00 p.m. today Technique: Obstetrical ultrasound images less than 14 weeks performed via transabdominal imaging Findings: A normal shaped single intrauterine gestation is present in the uterus. CRL 0.8 cm corresponds to 6 weeks 5 days gestational age Cardiac motion 158 bpm Right ovary obscured by bowel gas Left ovary 4.1 cm arterial flow small corpus luteum cyst Ultrasonographic survey of visible and placental structures unremarkable. Amniotic fluid volume appears appropriate for this estimated gestational age. Impression: Viable intrauterine gestation 6 weeks 5 days.
[2025-03-25 20:04] LABS: Basophils # (Auto) 0.1 Thou/mm3 (0.0-0.2); Basophils % (Auto) 1 % (0-2.5); Eosinophils # (Auto) 0.2 Thou/mm3 (0.0-0.5); Eosinophils % (Auto) 2 % (0-10); Hematocrit 39.9 % (36.0-46.0); Hemoglobin 13.8 g/dL (12.0-16.0); Immature Granulocytes Auto 0.02 Thou/mm3 (0.00-0.00); Lymphocytes # (Auto) 2.1 Thou/mm3 (1.0-4.8); Lymphocytes % (Auto) 22 % (10-50); Mean Corpuscular HGB Conc 34.6 g/dl (31.0-37.0); Mean Corpuscular Hemoglobin 30.7 pg (25.0-35.0); Mean Corpuscular Volume 89 fL (80-100); Monocytes # (Auto) 0.5 Thou/mm3 (0.0-0.8); Monocytes % (Auto) 6 % (0-12); Neutrophils # (Auto) 6.7 Thou/mm3 (1.8-7.7); Neutrophils % (Auto) 70 % (37-80); Nucleated Red Blood Cell # 0.00 Thou/mm3 (0.00-0.00); Nucleated Red Blood Cell % 0 /100 WBC (0); Platelet Count 314 Thou/mm3 (140-440); RDW Standard Deviation 38.6 fL (36.4-46.3); Red Blood Count 4.50 Miln/mm3 (4.00-5.20); White Blood Count 9.6 Thou/mm3 (3.6-11.0)
[2025-03-25 20:15] LABS: Collection Type, Urine Voided
[2025-03-25 20:27] LABS: Bacteria,Urine Rare; Bilirubin,Urine Negative (Negative); Blood,Urine 3+ (Negative); Clarity,Urine Clear (Clear/Hazy); Color,Urine Lt-Yellow (Lt Yel-Yel); Glucose, Urine Negative (Negative); Ketones,Urine Negative (Negative); Leukocyte Esterase,Urine Positive (Negative); Nitrite,Urine Negative (Negative); PH,Urine 6.0 (5.0-7.0); Protein,Urine Negative (Neg - Trace); RBC,Urine 14 /hpf (0-3); Specific Gravity,Urine 1.011 (1.001-1.035); Squamous Epithelial Cell,Urine 6 /hpf (0-5); Urobilinogen,Urine Negative mg/dL (0.0-1.0); WBC,Urine 5 /hpf (0-5)
[2025-03-25 20:27] LABS: Alanine Aminotransferase 20 U/L (10-49); Albumin, Serum 4.4 gm/dL (3.5-5.0); Albumin/Globulin Ratio 1.5 (1.2-2.2); Alkaline Phosphatase 63 U/L (46-116); Anion Gap 10 (7-16); Aspartate Amino Transferase 19 U/L (0-34); BUN/Creatinine Ratio 7 Ratio (12-20); Bilirubin,Total 0.4 mg/dL (0.3-1.2); Blood Urea Nitrogen 5 mg/dL (9-23); Calcium 9.9 mg/dL (8.3-10.6); Calcium (Corrected) 9.9 mg/dL (8.5-10.1); Carbon Dioxide 23.6 mMol/L (20.0-31.0); Chloride 105 mMol/L (98-107); Creatinine (Component) 0.7 mg/dL (0.6-1.3); Estimated Creatinine Clearance 154.7 mL/min (>60); Globulin 2.9 gm/dL (2.3-3.5); Glucose 81 mg/dL (74-106); Osmolality,Calculated 273 (275-295); Potassium 4.3 mMol/L (3.4-5.1); Sodium 139 mMol/L (136-145); Total Protein 7.3 gm/dL (5.7-8.2); eGFR > 60 See Note
[2025-03-25 20:55] LABS: Beta HCG,Quantitative 65786 mIU/mL (<5.0)
[2025-03-25] MEDS: NITROFURANTOIN MACRO 100 MG CAPSULE PO (21:31)
--- NOTE | 2025-03-26 03:03 | EDNOTE_ITS ---
ED OB Contraction Preg RMI/HPI General Chief complaint: Vaginal Bleeding Stated complaint: CRAMPING WITH VAGINAL BLEEDING X3 HRS; 7 WEEKS OB Time Seen by Provider: 03/25/25 19:20 Arrival date/time: 03/25/25 19:03 This is a case of 30-year-old female with no medical history came in in the emergency room due to vaginal bleeding but no blood clots with mild pelvic cramping patient is 6 weeks 3 para 2 with regular checkup Limitations: no limitations Related Data Previous Rx's ?Medication ?Instructions ?Recorded nitrofurantoin 100 mg PO BID #20 caps 03/25 monohydrate/macrocrystals 100 mg capsule (Macrobid) Allergies Allergy/AdvReac Type Severity Reaction Status Date / Time ciprofloxacin Allergy Severe CAUSES Verified 03/25/25 19:07 SEVERE ANXIETY ATTACKS Penicillins Allergy Severe Rash Verified 03/25/25 19:07 adhesive Allergy Intermediate ARM TURNED Verified 03/25/25 19:07 RED Iodinated Contrast Media AdvReac Severe BURNING,BRU Verified 03/25/25 19:07 ISING,DIZZY ,NAUSEATED Review of Systems Review of Systems Systems Reviewed: All systems reviewed, normal except as documented Constitutional Constitutional: Reports system reviewed and no additional complaints, except as documented and Reports as per HPI Cardiovascular Cardiovascular: Reports system reviewed and no additional complaints, except as documented and Reports as per HPI Respiratory Respiratory: Reports system reviewed and no additional complaints, except as documented and Reports as per HPI Gastrointestinal Gastrointestinal: Reports system reviewed and no additional complaints, except as documented and Reports as per HPI Genitourinary Genitourinary: Reports system reviewed and no additional complaints, except as documented and Reports as per HPI Musculoskeletal Musculoskeletal: Reports system reviewed and no additional complaints, except as documented and Reports as per HPI Neurologic Neurologic: Reports system reviewed and no additional complaints, except as documented and Reports as per HPI Past Medical History Past Medical History CARDIAC: Negative Congestive Heart Failure RESPIRATORY: Negative Chronic Obstructive Pulmonary Disease (COPD) GENITOURINARY: Negative Renal Disease ENDOCRINE: Negative Diabetes Mellitus Type 1 or Diabetes Mellitus Type 2 PSYCHO/SOCIAL: Positive Anxiety Surgical History SURGICAL: Positive Open Reduction Internal Fixation and Arthroscopy Social History SMOKING STATUS: Never smoker ED Exam General Limitations: Present no limitations General appearance: Present alert, in no apparent distress and other (Patient is awake alert oriented not in distress nontoxic looking well-hydrated well- nourished) Head Head exam: Present atraumatic, normocephalic and normal inspection Eye Eye exam: Present normal appearance, PERRL and EOMI ENT ENT exam: Present normal exam, normal oropharynx and mucous membranes moist Neck Neck exam: Present normal inspection, full ROM and trachea midline; Absent tenderness, meningismus, lymphadenopathy or thyromegaly Chest Chest inspection: Present normal inspection and symmetric chest wall rise; Absent tenderness Respiratory Respiratory exam: Present normal lung sounds bilaterally; Absent respiratory distress, wheezes, stridor, accessory muscle use or prolonged expiratory phase Cardiovascular Cardiovascular exam: Present regular rate, normal rhythm and normal heart sounds; Absent bradycardia, tachycardia, irregular rhythm, systolic murmur or diastolic murmur Abdominal Exam Abdominal exam: Present soft and normal bowel sounds; Absent distention, tenderness, guarding, rebound, rigidity, diminished bowel sounds, hyperactive bowel sounds, hypoactive bowel sounds or organomegaly Extremities Exam Extremities exam: Present normal inspection and full ROM Back Exam Back exam: Present normal inspection and full ROM; Absent CVA tenderness (R) or CVA tenderness (L) Neurological Exam Neurological exam: Present alert, oriented X3, CN II-XII intact and normal gait; Absent motor sensory deficit or reflexes normal Psychiatric Psychiatric exam: Present normal affect and normal mood Skin Skin exam: Present warm, dry, intact, normal color and other (Excellent skin turgor) Course Quality Measures none Orders Category Date Time Status US OB <= 14 weeks fetus Stat Exams 03/25/25 19:20 Completed ABO/RH Type Stat Lab 03/25/25 19:38 Completed Beta HCG,Quantitative Stat Lab 03/25/25 19:38 Completed CBC Stat Lab 03/25/25 19:38 Completed CMP [Comprehensive Metabolic Panel] Stat Lab 03/25/25 19:38 Completed Urinalysis Stat Lab 03/25/25 20:00 Completed Nitrofurantoin Macro [Macrobid] Med 03/25/25 21:23 Discontinued 100 mg PO X1 ONE Vital Signs Vital signs: Vital Signs Temperature 98.6 F 03/25/25 19:15 Pulse Rate 94 03/25/25 19:15 Respiratory Rate 18 03/25/25 19:15 Blood Pressure 131/88 H 03/25/25 19:15 Pulse Oximetry (%) 98 03/25/25 19:15 Oxygen Delivery Method Room Air 03/25/25 19:15 Oxygen saturation 98% on room air normal OB/Uterine Contractions MDM Narrative MDM Narrative:: This is a case of 30-year-old female with no medical history came in in the emergency room due to vaginal bleeding but no blood clots with mild pelvic cramping patient is 6 weeks 3 para 2 with regular checkup physical examination patient is awake alert oriented not in distress nontoxic looking well-hydrated well-nourished abdominal exam is benign nonsurgical no guarding no rebound no rigidity no tenderness no CVA tenderness excellent skin turgor blood test showed no leukocytosis no anemia kidney and cruz er function is normal no electrolyte imbalance urinalysis shows positive for urinary tract infection patient is O+ patient beta-hCG [id number] patient pelvic ultrasound showed a 6 weeks intrauterine with heart rate of 158 based on my physical examination and history patient symptoms suggestive of threatened with urinary tract infection this patient was prescribed with Macrobid for UTI patient will follow-up with PCP to be referred to OB for further evaluation and treatment pelvic rest no sex until cleared by primary care physician and hydration continue multivitamins for any worsening symptoms or any emergent concern return precaution in the ER is advised Patient was discharged with comfortable condition walking with stable gait. Patient verbalized no further complains explained diagnosis and answered patient question. Patient is comfortable with the proposed management plan including the need to follow up with his/her primary care physician and any specialist if applicable Discussed patient for any urgent condition or worsening sx, He/She needed to go to emergency room immediately or call 911. Patient acknowledge the responsibility to follow up as instructed and to monitor her/his symptoms. For any persistence of the symptoms for more than 3-5 days return precaution advised. Discussed the result of the test and was given printed discharge instruction Patient data External records reviewed:: [facility] previous records Clinical information provided by:: patient Social determinants that could affect healthcare access:: none Patient has the following chronic illnesses:: None How is presenting disease/condition affected by chronic disease/condition?: no chronic disease Evaluation data The following diagnostics were reviewed and interpreted by me:: lab results and radiology exam(s) Lab and/or radiology exams considered but not ordered:: Reviewed Interpretation Summary: Reviewed Medications / Prescriptions Medications or Prescriptions considered but not ordered:: Given Medication administrations:: Medication Administration History Discontinued Medications Nitrofurantoin Macrocrystals (Nitrofurantoin Macro 100 Mg Capsule) 100 mg PO X1 ONE Stop: 10/18/25 21:24 Last Admin: 03/25/25 21:31 Dose: 100 mg Documented By: OA Given Consultations Consultation(s) initiated? (list below): No Diagnosis OB Contractions Differential Diagnosis: other (Threatened early urinary tract infection) Most likely diagnosis given after review of the tests above:: Threatened urinary tract infection Admission Indicated Admission indicated?: not indicated Explain why admission is indicated or not indicated:: Not indicated Admission Request Was there a request for admission?: No Admission Attestation Admission request attestation: Not indicated Disposition Plan Disposition Plan: Discharge Discharge Attestation Discharge Attestation: The patient and all family members were given an opportunity to ask questions and understood the discharge instructions. Discharge instructions specifically effects, indications for sooner follow up or return to the emergency department, and the expected course of current diagnosis. Patient condition: Stable Discharge Plan Plan Patient Disposition: HOME (Self Care) Patient condition on transfer: Stable Prescriptions/Referrals Prescriptions/Med Rec: New nitrofurantoin monohyd/m-cryst [Macrobid] 100 mg capsule 100 mg PO BID Qty: 20 0RF Rx Instructions: must administer with a meal/food Referrals: [facility] ([facility])Nisha MD [Physician, MANAGEMENT INSTRUCTOR] - 03/27/25 Referral Note: Follow-up with your primary care physician in 2 days for reevaluation and for further treatment of threatened early and for checkup Livan Patterson MD [Primary Care Provider, Family Practice] - In 1 week Problem List Clinical Impression: , threatened, early , Urinary tract infection Patient/Caregiver Discharge Instructions Education Materials: Urinary Tract Infections in Women, ED Possible Miscarriage ... Additional Instructions: Follow-up with your primary care physician in 2 days for reevaluation and to be referred to OB law firm receptionist for further evaluation and treatment and checkup it is very important to see an OB law firm receptionist in 2 days for reevaluation and further treatment of threatened of early and checkup if not seen in 2 days return to the emergency room for further evaluation and treatment and for repeat beta-hCG and pelvic ultrasound continue to take your multivitamins increase water intake keep hydrated Pedialyte for hydration finish the course of antibiotic no sex until cleared by your primary care physician pelvic rest is advised no lifting no pulling no pushing more than 5 pounds Print Language: [place] Islander Stand Alone Forms: Melanie Award Info., Patient Portal Info Letter PA/WEATHER STRIP INSTALLER Supervising Physician PA/WEATHER STRIP INSTALLER Supervising Physician: Dr. Madera
== END 2025-03-25 21:32 | disposition home or self-care (01) ==
PROVIDERS: Nurse Practitioner Family; Emergency Provider Emergency Medicine; PCP Family Medicine
DX: O03.9 Complete or unspecified spontaneous abortion without complication (principal); O23.40 Unspecified infection of urinary tract in pregnancy, unspecified trimester; N39.0 Urinary tract infection, site not specified
CPT/HCPCS: 36415; 76801; 80053; 81001; 84702; 85025; 86900; 86901; 99283; A9270